=== PATIENT | female | born 1985 ===

== ENCOUNTER 2018-10-27 12:16 | Inpatient (IN) | payer OTHER ==
[2018-10-27] MEDS ORDERED: Sodium Chloride 0.9% 1,000 ML IV STA (13:41)
--- NOTE | 2018-10-27 13:50 | ED PDOC ---
HPI: Female Pain Time Seen by Provider: 10/27/18 13:41 Chief Complaint (Nursing): Female Genitourinary Chief Complaint (Provider): VAGINAL BLEEDING History Per: Patient History/Exam Limitations: no limitations Onset/Duration Of Symptoms: Days Current Symptoms Are (Timing): Still Present Severity: Moderate Pain Scale Rating Of: 7 Quality Of Discomfort: "Pain" Associated Symptoms: Fever, Chills, Nausea. denies: Vomiting Alleviating Factors: None Additional History Per: Patient Additional Complaint(s): 32 Y/O FEMALE WITH NO MEDICAL HX PRESENTS TO THE ED C/O RIGHT SIDED ABD PAIN, VAGINAL BLEEDING AND FEVER. PATIENT REPORTS LAST MENSTURAL PERIOD 08/10/2018. TWO WEEKS AGO PATIENT STATES SHE HAD VAGINAL BLEEDING FOR 1 DAY WITH "BLOOD CLOTS" AND 1 WEEKS AGO PT REPORTS SHE STARTED SPOTTING AGAIN. PATIENT TOOK URINE PREG TEST AT HOME WITH POSITIVE RESULT. PATIENT ALSO STATES FEVER LAST WEEK MONDAY AND BURNING ON URINATION. PATIENT DENIES CP AND SOB, DENIES HX OF STI. Abnormal Vaginal Bleeding: Yes Last Menstral Period: 08/10/2018 : 1 Para: 0 Past Medical History Vital Signs: Last Vital Signs Temp 98.4 F 10/27/18 12:55 Pulse 94 H 10/27/18 12:55 Resp 18 10/27/18 12:55 BP 117/67 10/27/18 12:55 Pulse Ox 99 10/27/18 12:55 TOSHA Report Viewed: No - Medical History PMH: No Chronic Diseases - Surgical History Surgical History: No Surg Hx - Family History Family History: States: Unknown Family Hx - Living Arrangements Living Arrangements: With Family - Social History Alcohol: None Drugs: Denies - Allergies Allergies/Adverse Reactions: Allergies Allergy/AdvReac Type Severity Reaction Status Date / Time ibuprofen AdvReac PAIN Verified 10/27/18 12:54 Review of Systems ROS Statement: Except As Marked, All Systems Reviewed And Found Negative Constitutional: Positive for: Fever, Chills. Negative for: Sweats, Weakness Respiratory: Negative for: Cough, Shortness of Breath, SOB with Exertion Gastrointestinal: Positive for: Nausea, Abdominal Pain Genitourinary Female: Positive for: Dysuria, Vaginal Bleeding, Pelvic Pain. Negative for: Vaginal Discharge Neurological: Negative for: Weakness Physical Exam - Reviewed Nursing Documentation Reviewed: Yes Vital Signs Reviewed: Yes - Physical Exam Appears: Positive for: Well, Non-toxic, No Acute Distress Head Exam: Positive for: ATRAUMATIC, NORMAL INSPECTION, NORMOCEPHALIC Skin: Positive for: Warm, Pallor, Jaundice. Negative for: Rash Eye Exam: Positive for: EOMI, Normal appearance, PERRL ENT: Positive for: Normal ENT Inspection Neck: Positive for: Normal, Painless ROM Cardiovascular/Chest: Positive for: Regular Rate, Rhythm Respiratory: Positive for: CNT, Normal Breath Sounds Pulses-Radial (L): 2+ Pulses-Radial (R): 2+ Gastrointestinal/Abdominal: Positive for: Normal Exam, Soft, Mass, Distended Pelvic Exam: Positive for: Mass (LARGE/ FIRM ABD BULGING WITH TENDERNESS TO RIGHT. BULGING EXTENDS PAST THE UMBILICUS 3 FINGER BREADTHS. SHIFTING TO RIGHT OF THE ABD. ABD DISTENTION NOTED 1 WEEK AGO. ) Back: Positive for: Normal Inspection. Negative for: L CVA Tenderness, R CVA Tenderness Extremity: Positive for: Normal ROM Neurological/Psych: Positive for: Awake, Alert, Normal Tone, Oriented - Laboratory Results Result Diagrams: 10/27/18 13:35 10/27/18 13:35 Urine POC: Positive - ECG O2 Sat by Pulse Oximetry: 99 Pulse Ox Interpretation: Normal Medical Decision Making Medical Decision Making: CBC CMP BETA HCG VBG UPREG UA US TRANS VAG 0.9NS 1 L BOLUS ROCEPHIN 1GM IV IN ED TYLENOL 650 MG PO: FEVER 14:30: DR. ARMIJO EXAMINED PT HAS BEDSIDE. LABS REVIEWED NOTED ELEVATED LFT'S, ELEVATED WBC'S, LOWER HGB/HCT PATIENT FOR UPPER ABD FOR EVAL OF LIVER. PENDING US PELVIS REPORT. ' WILDLIFE TECHNICIAN CALLED ON CONSULT, TEAM WILL EVALUATE PATIENT. PENDING US REPORT. 15:24 PELVIC US READ AND REVIEWED BY RADIOLOGIST FINDINGS: UTERUS: Measures 18.9 x 11.7 x 13.6 cm. Uterus is enlarged and appears heterogeneous in echotexture likely is a function of gross uterine fibroid disease. An aggregate versus solitary fibroid occupies the majority of tissue in the uterus measuring 15.6 x 9.3 x 11.6 cm with no separate definable pathology identified. ENDOMETRIUM: Not recognize throughout the exam. CERVIX: Limited evaluation due to gross uterine enlargement and myomatous changes. The visualized cervix appears nonfocal. RIGHT OVARY: Measures 3.6 x 1.5 x 2.7 cm. The right ovary is presumed to been identified however its hypoechoic appearance be indistinguishable from potential small exophytic fibroid. LEFT OVARY: Not identified. No suspicious adnexal mass or fluid collection appreciable. FREE FLUID: No significant free fluid noted. OTHER FINDINGS: None. IMPRESSION: Transabdominal ultrasonography of the pelvis reveals gross uterine enlargement likely from an aggregate or solitary grossly enlarged fibroid measuring 15.6 cm greatest dimension with the uterus measuring 18.9 cm as discussed above. The endometrium is unrecognizable and the cervix is poorly characterized with the visualized portion nonfocal. No suspicious adnexal findings are the left ovary is not identified. Right ovary appears unremarkable but given its hypoechoic pattern could be indistinguishable from an exophytic small fibroid. Elective MRI with and without contrast can be utilized for further characterization of the pelvic reproductive organs. US: PT HAS ENLARGED UTERUS AND AN ENLARGED FIBROID. WILDLIFE TECHNICIAN RECOMMEND FOR REPEAT BETA IN 2-3 DAYS. MEDICAL ADMISSION FOR ELEVATED LFT'S. PT PENDINF US ABD AND CHEST XRAY. 1800: SX RESIDENT CALLED, WAITING CALL BACK. REPEAT VS: TEMP: 98.8 HR:74 B/P:110/67 O2SAT:98%. 1835: DR. MOTTA (SURGERY) AWARE OF CONSULT, DR. Aleah NERI (GI) WILL SEE PATIENT IN ED. PATIENT AWARE OF CLINICAL FINDINGS AND IMPENDING CONSULTS. DR. GRAF CALLED FOR ADMISSION. 1950: DR. GRAF EXAMINED PT HAS BEDSIDE, PT FOR INPATIENT ADMISSION TO MED/SURG, ABD PAIN, UTI, JUANDICE. PT AWARE CLINICAL FINDINGS, AGREES WITH PLAN. Disposition - Clinical Impression Clinical Impression: Abdominal pain, UTI (urinary tract infection) - Patient ED Disposition Is Patient to be Admitted: Yes Counseled Patient/Family Regarding: Diagnosis, Need For Followup - Disposition Disposition Time: 19:54 Condition: STABLE Forms: Fliggo (Latvian) - Pt Status Changed To: Hospital Disposition Of: Inpatient - Admit Certification Admit to Inpatient:: After my assessment, the patient will require hospitalization for at least two midnights. This is because of the severity of symptoms shown, intensity of services needed, and/or the medical risk in this patient being treated as an outpatient. - POA Present On Arrival: None
[2018-10-27 13:53] LABS: BASO # 0.1 K/uL (0.0-0.2); BASO % 0.5 % (0.0-2.0); EOS # 0.1 K/uL (0.0-0.7); EOS % 0.4 % (0.0-4.0); LYMPH # 1.3 K/uL (1.0-4.3); LYMPH % 7.2 % (20.0-40.0); MEAN CELL VOLUME 75.9 fl (81.0-99.0); MEAN CORPUSCULAR HEMOGLOBIN 23.8 pg (27.0-31.0); MEAN CORPUSCULAR HGB CONC 31.4 g/dL (33.0-37.0); MONO # 1.1 K/uL (0.0-0.8); MONO % 6.1 % (0.0-10.0); NEUT # 15.4 K/uL (1.8-7.0); NEUT % 85.8 % (50.0-75.0); PLATELET COUNT 668 K/uL (130-400); RBC 3.77 Mil/uL (3.80-5.20); RED CELL DISTRIBUTION WIDTH 16.3 % (11.5-14.5)
[2018-10-27 13:56] LABS: SQUAMOUS EPITHIAL 2 /hpf (0-5); URINE AMORPHOUS SEDIMENT RARE /ul (<OCC); URINE BACTERIA FEW (<OCC); URINE BILIRUBIN NEGATIVE (NEGATIVE); URINE BLOOD LARGE (NEGATIVE); URINE CLARITY CLOUDY (Clear); URINE COLOR AMBER (YELLOW); URINE GLUCOSE (UA) NEG (NEGATIVE); URINE LEUKOCYTE ESTERASE MOD Leu/uL (Negative); URINE PROTEIN 100 mg/dL (NEGATIVE)
[2018-10-27 14:01] LABS: ALB/GLOB RATIO 0.9 (1.0-2.1); ALBUMIN 3.4 g/dL (3.5-5.0); ALT/SGPT 142 U/L (9-52); AST/SGOT 59 U/L (14-36); BLOOD UREA NITROGEN 7 mg/dl (7-17); CALCIUM 8.8 mg/dL (8.4-10.2); GFR NON-AFRICAN AMERICAN > 60
[2018-10-27] MEDS ORDERED: cefTRIAXone (Rocephin) 1 gm Inj ONE (15:01)
[2018-10-27 15:13] LABS: BLASTS 1 % (0-0); LYMPHOCYTE 9 % (20-50); MONOCYTE 4 % (0-10); MYELOCYTE 1 % (0-0); NEUTROPHIL 85 % (42-75); TOTAL CELLS COUNTED 100
[2018-10-27 15:14] LABS: VENOUS BLOOD GAS BASE EXCESS 0.1 mmol/L (0.0-2.0); VENOUS BLOOD GAS PCO2 39 mmHg (40-60); VENOUS BLOOD GAS PO2 37 mm/Hg (30-55); VENOUS BLOOD PH 7.41 (7.32-7.43)
[2018-10-27 15:14] LABS: ANISOCYTOSIS SLIGHT; MICROCYTOSIS SLIGHT; OVALOCYTES SLIGHT; PLATELET ESTIMATE INCREASED (NORMAL)
--- NOTE | 2018-10-27 15:27 | US ---
Date of service: 10/27/2018 HISTORY: PELVIC PAIN COMPARISON: None available. TECHNIQUE: Transabdominal pelvic ultrasound was performed with longitudinal and transverse images submitted for interpretation. FINDINGS: UTERUS: Measures 18.9 x 11.7 x 13.6 cm. Uterus is enlarged and appears heterogeneous in echotexture likely is a function of gross uterine fibroid disease. An aggregate versus solitary fibroid occupies the majority of tissue in the uterus measuring 15.6 x 9.3 x 11.6 cm with no separate definable pathology identified. ENDOMETRIUM: Not recognize throughout the exam. CERVIX: Limited evaluation due to gross uterine enlargement and myomatous changes. The visualized cervix appears nonfocal. RIGHT OVARY: Measures 3.6 x 1.5 x 2.7 cm. The right ovary is presumed to been identified however its hypoechoic appearance be indistinguishable from potential small exophytic fibroid. LEFT OVARY: Not identified. No suspicious adnexal mass or fluid collection appreciable. FREE FLUID: No significant free fluid noted. OTHER FINDINGS: None. IMPRESSION: Transabdominal ultrasonography of the pelvis reveals gross uterine enlargement likely from an aggregate or solitary grossly enlarged fibroid measuring 15.6 cm greatest dimension with the uterus measuring 18.9 cm as discussed above. The endometrium is unrecognizable and the cervix is poorly characterized with the visualized portion nonfocal. No suspicious adnexal findings are the left ovary is not identified. Right ovary appears unremarkable but given its hypoechoic pattern could be indistinguishable from an exophytic small fibroid. Elective MRI with and without contrast can be utilized for further characterization of the pelvic reproductive organs.
--- NOTE | 2018-10-27 15:37 | CP.PCM.CON ---
<Huber Henning - Last Filed: 10/27/18 16:55> History of Present Illness - History of Present Illness History of Present Illness: 32 yo female with no pmh present to ER due to RLQ pain and back, OB consulted due to + test with prev vaginal bleed. Last Menstrual period 08/10/18 Patient report that pain is on RLQ, radiate to back, 6 out of 10, comes and goes with no alleviating, or exacerbating factor. It started 1 week ago after she had a large vaginal bleed once, then spotting thru out the week,Patient report the pain have been daily, and on MON she had fever, dysuria and hematuria. On Monday patient checked for and found out that she is . Otherwise patient currently have no nausea, vomiting, chest pain, sob, constipation, dysuria or polyuria. O Review of Systems - Review of Systems Systems not reviewed;Unavailable: Acuity of Condition All systems: reviewed and no additional remarkable complaints except - Constitutional Constitutional: As Per HPI - EENT Eyes: As Per HPI Ears: As Per HPI - Reproductive: Female Reproductive:Female: Cycle <21 Days, Normal Menses Past Patient History - Past Social History Alcohol: None Drugs: Denies - PSYCHIATRIC Hx Substance Use: No - SURGICAL HISTORY Hx Surgeries: No - ANESTHESIA Hx Anesthesia: No Meds Allergies/Adverse Reactions: Allergies Allergy/AdvReac Type Severity Reaction Status Date / Time ibuprofen AdvReac PAIN Verified 10/27/18 12:54 - Medications Medications: Current Medications Ceftriaxone Sodium 1 gm/ (Sodium Chloride) 100 mls @ 100 mls/hr IVPB DAILY STA; Protocol Stop: 10/27/18 16:03 Last Admin: 10/27/18 15:13 Dose: 100 mls/hr Physical Exam - Constitutional Appears: Well, Non-toxic, No Acute Distress - Head Exam Head Exam: ATRAUMATIC, NORMAL INSPECTION, NORMOCEPHALIC - Eye Exam Eye Exam: EOMI, PERRL, Scleral icterus Pupil Exam: NORMAL ACCOMODATION, PERRL - ENT Exam ENT Exam: Mucous Membranes Moist, Normal Exam - Neck Exam Neck exam: Positive for: Normal Inspection - Respiratory Exam Respiratory Exam: Clear to Auscultation Bilateral, NORMAL BREATHING PATTERN - Cardiovascular Exam Cardiovascular Exam: REGULAR RHYTHM, +S1, +S2 - GI/Abdominal Exam GI & Abdominal Exam: Normal Bowel Sounds Additional comments: RLQ tender + for irregular/ hard uterus - Back Exam Back exam: NORMAL INSPECTION - Neurological Exam Neurological exam: Alert, CN II-XII Intact, Normal Gait, Oriented x3, Reflexes Normal - Skin Skin Exam: Dry, Intact, Warm Additional comments: jaundice Results - Vital Signs Recent Vital Signs: Last Vital Signs Temp 101.1 F H 10/27/18 15:09 Pulse 80 10/27/18 14:41 Resp 20 10/27/18 14:41 BP 104/63 10/27/18 14:41 Pulse Ox 99 10/27/18 14:54 - Labs Result Diagrams: 10/27/18 13:35 10/27/18 13:35 Labs: Laboratory Results - last 24 hr 10/27/18 10/27/18 10/27/18 13:35 13:35 13:35 WBC 18.0 H RBC 3.77 L Hgb 9.0 L Hct 28.6 L MCV 75.9 L MCH 23.8 L MCHC 31.4 L RDW 16.3 H Plt Count 668 H MPV 8.0 Neut % (Auto) 85.8 H Lymph % (Auto) 7.2 L Rooks % (Auto) 6.1 Eos % (Auto) 0.4 Baso % (Auto) 0.5 Neut # (Auto) 15.4 H Lymph # (Auto) 1.3 Rooks # (Auto) 1.1 H Eos # (Auto) 0.1 Baso # (Auto) 0.1 Neutrophils % (Manual) 85 H Lymphocytes % (Manual) 9 L Monocytes % (Manual) 4 Myelocytes % 1 H Blast Cells % 1 H Platelet Estimate Increased H Anisocytosis (manual) Slight Microcytosis (manual) Slight Ovalocytes Slight pO2 ABG Carboxyhemoglobin POC ABG HHb (Measured) ABG Methemoglobin VBG pH VBG pCO2 VBG HCO3 VBG O2 Sat (Calc) VBG Base Excess VBG Hgb O2 Saturation Hemoglobin Sodium 134 Potassium 3.6 Chloride 97 L Carbon Dioxide 26 Anion Gap 15 BUN 7 Creatinine 0.5 L Est GFR ( Amer) > 60 Est GFR (Non-Af Amer) > 60 Random Glucose 106 H Calcium 8.8 Total Bilirubin 1.0 AST 59 H ALT 142 H Alkaline Phosphatase 488 H Total Protein 7.2 Albumin 3.4 L Globulin 3.8 Albumin/Globulin Ratio 0.9 L Beta HCG, Quant 53.85 Urine Color Debbie Urine Clarity Cloudy Urine pH 6.0 Ur Specific Santo 1.017 Urine Protein 100 Urine Glucose (UA) Neg Urine Ketones 20 Urine Blood Large Urine Nitrate Negative Urine Bilirubin Negative Urine Urobilinogen 4.0 H Ur Leukocyte Esterase Mod Urine RBC (Auto) 87 H Urine Microscopic WBC 176 H Ur Squamous Epith Cells 2 Amorphous Sediment Rare H Urine Bacteria Few H Blood Type Antibody Screen BBK History Checked 10/27/18 10/27/18 13:40 15:11 WBC RBC Hgb Hct MCV MCH MCHC RDW Plt Count MPV Neut % (Auto) Lymph % (Auto) Rooks % (Auto) Eos % (Auto) Baso % (Auto) Neut # (Auto) Lymph # (Auto) Rooks # (Auto) Eos # (Auto) Baso # (Auto) Neutrophils % (Manual) Lymphocytes % (Manual) Monocytes % (Manual) Myelocytes % Blast Cells % Platelet Estimate Anisocytosis (manual) Microcytosis (manual) Ovalocytes pO2 37 ABG Carboxyhemoglobin 2.2 H POC ABG HHb (Measured) 24.0 H ABG Methemoglobin 3.0 VBG pH 7.41 VBG pCO2 39 L VBG HCO3 24.3 VBG O2 Sat (Calc) 74.7 H VBG Base Excess 0.1 VBG Hgb O2 Saturation 70.8 L Hemoglobin 13.3 Sodium Potassium Chloride Carbon Dioxide Anion Gap BUN Creatinine Est GFR ( Amer) Est GFR (Non-Af Amer) Random Glucose Calcium Total Bilirubin AST ALT Alkaline Phosphatase Total Protein Albumin Globulin Albumin/Globulin Ratio Beta HCG, Quant Urine Color Urine Clarity Urine pH Ur Specific Santo Urine Protein Urine Glucose (UA) Urine Ketones Urine Blood Urine Nitrate Urine Bilirubin Urine Urobilinogen Ur Leukocyte Esterase Urine RBC (Auto) Urine Microscopic WBC Ur Squamous Epith Cells Amorphous Sediment Urine Bacteria Blood Type A POSITIVE Antibody Screen Negative BBK History Checked No verified bt Assessment & Plan - Assessment and Plan (Free Text) Assessment: 32 yo female with no pmh present to ER due to RLQ pain and back, OB consulted due to + test with prev vaginal bleed. Last Menstrual period 08/10/18 US: + for uterine enlargement from an aggregate or solitary enlarged fibroid measuring 15.6cm greatest dimension with the uterus measuring 18.9 cm. the endometrium is unrecognizable and the cervix is poorly characterized with visualized portion nonfocal. No suspicious adnexal fidning are the left ovary is not identified. RIght ovary appears unremarkable but given its hypoechoic pattern could be indistinguishable form exophytic small fibroid. ELECTIVE MRI recommended Assessment and plan + for abd pain on RLQ Hx of vaginal bleed + for fibroid on US Beta HCG 50.85 PE: + for irregular uterus Plan Reviewing her labs,Physical examination, and US, cannot be confirmed, B-HCG is low, patient will need serial b-HCG to follow up for possible tumor secreting B-hcg vs IUGP. Would recommend for primary team to be consulted for further management and evaluate for other possible causative factors. Thank you for the consult <Christopher Chandra - Last Filed: 10/28/18 17:42> Meds - Medications Medications: Current Medications Acetaminophen (Tylenol 325mg Tab) 650 mg PO Q6 PRN PRN Reason: Fever >100.4 F Last Admin: 10/28/18 06:08 Dose: 650 mg Ferrous Sulfate (Feosol) 325 mg PO BID KULDIP Last Admin: 10/28/18 09:05 Dose: 325 mg Sodium Chloride (Sodium Chloride 0.9%) 1,000 mls @ 100 mls/hr IV .Q10H KULDIP Last Admin: 10/28/18 00:10 Dose: 100 mls/hr Piperacillin Sod/Tazobactam (Sod 3.375 gm/ Sodium Chloride) 100 mls @ 100 mls/hr IVPB Q6 KULDIP; Protocol Last Admin: 10/28/18 12:16 Dose: 100 mls/hr Multivit/Folic Acid/Iron () 1 tab PO DAILY KULDIP Last Admin: 10/28/18 09:05 Dose: 1 tab Results - Vital Signs Recent Vital Signs: Last Vital Signs Temp 99.8 F H 10/28/18 15:28 Pulse 88 10/28/18 15:28 Resp 17 10/28/18 15:28 BP 149/62 10/28/18 15:28 Pulse Ox 98 10/28/18 15:28 - Labs Result Diagrams: 10/28/18 06:35 10/28/18 06:35 Labs: Laboratory Results - last 24 hr 10/27/18 10/27/18 10/27/18 13:07 18:45 18:52 WBC RBC Hgb Hct MCV MCH MCHC RDW Plt Count MPV Neut % (Auto) Lymph % (Auto) Rooks % (Auto) Eos % (Auto) Baso % (Auto) Neut # (Auto) Lymph # (Auto) Rooks # (Auto) Eos # (Auto) Baso # (Auto) PT INR APTT Sodium Potassium Chloride Carbon Dioxide Anion Gap BUN Creatinine Est GFR ( Amer) Est GFR (Non-Af Amer) Random Glucose Calcium Total Bilirubin AST ALT Alkaline Phosphatase Total Protein Albumin Globulin Albumin/Globulin Ratio Serum HCG, Qual Beta HCG, Quant Urine Opiates Screen Negative Urine Methadone Screen Negative Ur Barbiturates Screen Negative Ur Phencyclidine Scrn Negative Ur Amphetamines Screen Negative U Benzodiazepines Scrn Negative U Oth Cocaine Metabols Negative U Cannabinoids Screen Negative Hepatitis A IgM Ab Negative Hep Bs Antigen Negative Hep B Core IgM Ab Negative Hepatitis C Antibody Negative Blood Type Confirm A POSITIVE 10/27/18 10/28/18 10/28/18 18:52 06:35 06:35 WBC 17.1 H RBC 3.25 L Hgb 8.0 L Hct 24.7 L MCV 76.0 L MCH 24.6 L MCHC 32.4 L RDW 16.6 H Plt Count 619 H MPV 7.7 Neut % (Auto) 86.6 H Lymph % (Auto) 6.7 L Rooks % (Auto) 5.6 Eos % (Auto) 0.7 Baso % (Auto) 0.4 Neut # (Auto) 14.9 H Lymph # (Auto) 1.1 Rooks # (Auto) 1.0 H Eos # (Auto) 0.1 Baso # (Auto) 0.1 PT 16.4 H 16.6 H INR 1.4 1.5 APTT 28.2 31.2 Sodium Potassium Chloride Carbon Dioxide Anion Gap BUN Creatinine Est GFR ( Amer) Est GFR (Non-Af Amer) Random Glucose Calcium Total Bilirubin AST ALT Alkaline Phosphatase Total Protein Albumin Globulin Albumin/Globulin Ratio Serum HCG, Qual Beta HCG, Quant Urine Opiates Screen Urine Methadone Screen Ur Barbiturates Screen Ur Phencyclidine Scrn Ur Amphetamines Screen U Benzodiazepines Scrn U Oth Cocaine Metabols U Cannabinoids Screen Hepatitis A IgM Ab Hep Bs Antigen Hep B Core IgM Ab Hepatitis C Antibody Blood Type Confirm 10/28/18 10/28/18 10/28/18 06:35 08:00 09:00 WBC RBC Hgb Hct MCV MCH MCHC RDW Plt Count MPV Neut % (Auto) Lymph % (Auto) Rooks % (Auto) Eos % (Auto) Baso % (Auto) Neut # (Auto) Lymph # (Auto) Rooks # (Auto) Eos # (Auto) Baso # (Auto) PT INR APTT Sodium 137 Potassium 3.6 Chloride 102 Carbon Dioxide 20 L Anion Gap 19 BUN 11 Creatinine 0.4 L Est GFR ( Amer) > 60 Est GFR (Non-Af Amer) > 60 Random Glucose 90 Calcium 8.3 L Total Bilirubin 1.0 AST 42 H D ALT 95 H D Alkaline Phosphatase 386 H D Total Protein 6.2 L Albumin 2.9 L Globulin 3.3 Albumin/Globulin Ratio 0.9 L Serum HCG, Qual Positive Beta HCG, Quant 48.79 Urine Opiates Screen Urine Methadone Screen Ur Barbiturates Screen Ur Phencyclidine Scrn Ur Amphetamines Screen U Benzodiazepines Scrn U Oth Cocaine Metabols U Cannabinoids Screen Hepatitis A IgM Ab Hep Bs Antigen Hep B Core IgM Ab Hepatitis C Antibody Blood Type Confirm Attending/Attestation - Attestation I have personally seen and examined this patient.: No I have fully participated in the care of the patient.: Yes I have reviewed all pertinent clinical information: Yes Notes (Text): 10/27/18 17:36 32yo with Large fibroid uterus evaluated at the ER for pain. Large fibroid uterus noted on Ultrasound evaluation. Low Beta hcg levels on lab evaluation. Assessment: Fibroid uterus Early with the possibility of miscarriage( recommend serial beta hcg levels every 72hours Referral of patient to a welder tool and die for mechanical commissioning engineer management of the fibroids. May reconsult Gynecology as needed.
[2018-10-27 15:48] LABS: VENOUS BLOOD GAS BASE EXCESS 2.2 mmol/L (0.0-2.0); VENOUS BLOOD GAS PCO2 33 mmHg (40-60); VENOUS BLOOD GAS PO2 65 mm/Hg (30-55); VENOUS BLOOD PH 7.49 (7.32-7.43)
--- NOTE | 2018-10-27 17:40 | US ---
Date of service: 10/27/2018 HISTORY: ELEVATED LFTS COMPARISON: None. TECHNIQUE: Sonographic evaluation of the right upper quadrant of the abdomen. FINDINGS: LIVER: Measures 15.0 cm in length. Normal echogenicity of the liver parenchyma. Normal directional blood flow seen at the main portal vein. No mass. No intrahepatic bile duct dilatation. GALLBLADDER: Gallbladder is distended without cholelithiasis appreciable. Gallbladder wall is borderline thickened at 2.5 mm. No pericholecystic fluid collection. Clinically correlate. No reported sonographic Ruiz sign. COMMON BILE DUCT: Measures 4.1 mm. No stones. No dilatation. PANCREAS: The pancreas unremarkable from head to the mid body with remainder obscured by overlying gastrointestinal gas. RIGHT KIDNEY: Measures 10.3 cm in length. Normal echogenicity. No calculus, mass, or hydronephrosis. Mildly prominent extrarenal pelvis noted. AORTA: No aneurysmal dilatation. IVC: Unremarkable. OTHER FINDINGS: Trace fluid is seen inferior to the left lobe liver as well as inferior to the gallbladder fossa. IMPRESSION: Trace fluid seen inferior to the left lobe liver as well as inferior to the gallbladder fossa. Gallbladder is mildly distended with upper limits normal gallbladder wall thickness. Clinically correlate for potential acalculous cholecystitis though this is not definite. No cholelithiasis appreciated. Normal CBD caliber. Partial imaging of the pancreas.
--- NOTE | 2018-10-27 18:39 | RAD ---
Date of service: 10/27/2018 HISTORY: FEBRILE COMPARISON: No prior. TECHNIQUE: Chest PA and lateral views FINDINGS: LUNGS: No active pulmonary disease. PLEURA: No significant pleural effusion identified. No pneumothorax apparent. CARDIOVASCULAR: No aortic atherosclerotic calcification present. Normal cardiac size. No pulmonary vascular congestion. OSSEOUS STRUCTURES: No significant abnormalities. VISUALIZED UPPER ABDOMEN: Normal. OTHER FINDINGS: None. IMPRESSION: No acute cardiopulmonary disease appreciated.
[2018-10-27 19:01] LABS: INR 1.4; PROTHROMBIN TIME 16.4 Seconds (9.8-13.1)
[2018-10-27 19:04] LABS: PARTIAL THROMBOPLASTIN TIME 28.2 Seconds (25.6-37.1)
--- NOTE | 2018-10-27 19:09 | CP.PCM.CON ---
History of Present Illness - History of Present Illness History of Present Illness: General Surgery Consult Note for Dr. Small Reason for consult: abd pain, rule out cholecystitis 32 F who denies any pmh presents to [facility] for complaint of abd pain. Patient seen and exaind in the ED. Patient stated pain started 1 week ago. At that same time, she developed vaginal bleeding. Patient reports the pain is moderate in [place]an [place]. She describes pain as sharp located in RLQ radiating to her back. Patient denies any aggravating or alleviating factors. She states on Monday that she had fever, dysuria and hematuria. Patient also states that she just found out that she is on Monday. OB was consulted due to and vaginal bleed. She reports her last Menstrual period was 08/10/18. Denies cp ,SOB, nausea, vomiting, diarrhea, constipation, incontinence. Patient reports 6 years ago that she had abnormal LFTS due to NSAID use. ABUS shows distention and thickened GB wall (see full report). PMH: Denies PSH: Denies ALL: ibuprofen Review of Systems - Review of Systems All systems: reviewed and no additional remarkable complaints except (as per HPI) Past Patient History - Past Social History Alcohol: None Drugs: Denies - PSYCHIATRIC Hx Substance Use: No - SURGICAL HISTORY Hx Surgeries: No - ANESTHESIA Hx Anesthesia: No Meds Allergies/Adverse Reactions: Allergies Allergy/AdvReac Type Severity Reaction Status Date / Time ibuprofen AdvReac PAIN Verified 10/27/18 12:54 Physical Exam - Constitutional Appears: No Acute Distress - Head Exam Head Exam: ATRAUMATIC, NORMOCEPHALIC - Eye Exam Eye Exam: EOMI, Normal appearance Pupil Exam: PERRL - ENT Exam ENT Exam: Mucous Membranes Moist - Respiratory Exam Respiratory Exam: NORMAL BREATHING PATTERN - Cardiovascular Exam Cardiovascular Exam: REGULAR RHYTHM - GI/Abdominal Exam GI & Abdominal Exam: Distended, Normal Bowel Sounds, Soft, Tenderness. absent: Firm, Guarding, Hernia, Rebound, Rigid - Extremities Exam Extremities exam: Positive for: normal capillary refill, pedal pulses present. Negative for: calf tenderness - Back Exam Back exam: absent: CVA tenderness (L), CVA tenderness (R) - Neurological Exam Neurological exam: Alert, Oriented x3 - Psychiatric Exam Psychiatric exam: Normal Affect, Normal Mood - Skin Skin Exam: Dry, Intact, Warm Results - Vital Signs Recent Vital Signs: Last Vital Signs Temp 98.8 F 10/27/18 17:31 Pulse 74 10/27/18 17:31 Resp 18 10/27/18 17:31 BP 110/67 10/27/18 17:31 Pulse Ox 99 10/27/18 18:47 - Labs Result Diagrams: 10/28/18 06:35 10/28/18 06:35 Labs: Laboratory Results - last 24 hr 10/27/18 10/27/18 10/27/18 13:35 13:35 13:35 WBC 18.0 H RBC 3.77 L Hgb 9.0 L Hct 28.6 L MCV 75.9 L MCH 23.8 L MCHC 31.4 L RDW 16.3 H Plt Count 668 H MPV 8.0 Neut % (Auto) 85.8 H Lymph % (Auto) 7.2 L [place] % (Auto) 6.1 Eos % (Auto) 0.4 Baso % (Auto) 0.5 Neut # (Auto) 15.4 H Lymph # (Auto) 1.3 [place] # (Auto) 1.1 H Eos # (Auto) 0.1 Baso # (Auto) 0.1 Neutrophils % (Manual) 85 H Lymphocytes % (Manual) 9 L Monocytes % (Manual) 4 Myelocytes % 1 H Blast Cells % 1 H Platelet Estimate Increased H Anisocytosis (manual) Slight Microcytosis (manual) Slight Ovalocytes Slight PT INR APTT pO2 ABG Carboxyhemoglobin POC ABG HHb (Measured) ABG Methemoglobin VBG pH VBG pCO2 VBG HCO3 VBG Total CO2 VBG O2 Sat (Calc) VBG Base Excess VBG Hgb O2 Saturation VBG Potassium Hemoglobin Glucose Lactate FiO2 Sodium 134 Potassium 3.6 Chloride 97 L Carbon Dioxide 26 Anion Gap 15 BUN 7 Creatinine 0.5 L Est GFR ( Amer) > 60 Est GFR (Non-Af Amer) > 60 Random Glucose 106 H Calcium 8.8 Total Bilirubin 1.0 AST 59 H ALT 142 H Alkaline Phosphatase 488 H Total Protein 7.2 Albumin 3.4 L Globulin 3.8 Albumin/Globulin Ratio 0.9 L Lipase Beta HCG, Quant 53.85 Venous Blood Potassium Urine Color Debbie Urine Clarity Cloudy Urine pH 6.0 Ur Specific [place] 1.017 Urine Protein 100 Urine Glucose (UA) Neg Urine Ketones 20 Urine Blood Large Urine Nitrate Negative Urine Bilirubin Negative Urine Urobilinogen 4.0 H Ur Leukocyte Esterase Mod Urine RBC (Auto) 87 H Urine Microscopic WBC 176 H Ur Squamous Epith Cells 2 Amorphous Sediment Rare H Urine Bacteria Few H Blood Type Antibody Screen BBK History Checked 10/27/18 10/27/18 10/27/18 13:40 15:11 15:44 WBC RBC Hgb Hct MCV MCH MCHC RDW Plt Count MPV Neut % (Auto) Lymph % (Auto) [place] % (Auto) Eos % (Auto) Baso % (Auto) Neut # (Auto) Lymph # (Auto) [place] # (Auto) Eos # (Auto) Baso # (Auto) Neutrophils % (Manual) Lymphocytes % (Manual) Monocytes % (Manual) Myelocytes % Blast Cells % Platelet Estimate Anisocytosis (manual) Microcytosis (manual) Ovalocytes PT INR APTT pO2 37 65 H ABG Carboxyhemoglobin 2.2 H POC ABG HHb (Measured) 24.0 H ABG Methemoglobin 3.0 VBG pH 7.41 7.49 H VBG pCO2 39 L 33 L VBG HCO3 24.3 26.6 VBG Total CO2 26.1 VBG O2 Sat (Calc) 74.7 H 97.7 H VBG Base Excess 0.1 2.2 H VBG Hgb O2 Saturation 70.8 L VBG Potassium 4.0 Hemoglobin 13.3 Glucose 99 Lactate 0.9 FiO2 21.0 Sodium 133.0 Potassium Chloride 103.0 Carbon Dioxide Anion Gap BUN Creatinine Est GFR ( Amer) Est GFR (Non-Af Amer) Random Glucose Calcium Total Bilirubin AST ALT Alkaline Phosphatase Total Protein Albumin Globulin Albumin/Globulin Ratio Lipase Beta HCG, Quant Venous Blood Potassium 4.0 Urine Color Urine Clarity Urine pH Ur Specific [place] Urine Protein Urine Glucose (UA) Urine Ketones Urine Blood Urine Nitrate Urine Bilirubin Urine Urobilinogen Ur Leukocyte Esterase Urine RBC (Auto) Urine Microscopic WBC Ur Squamous Epith Cells Amorphous Sediment Urine Bacteria Blood Type A POSITIVE Antibody Screen Negative BBK History Checked No verified bt 10/27/18 10/27/18 16:45 18:52 WBC RBC Hgb Hct MCV MCH MCHC RDW Plt Count MPV Neut % (Auto) Lymph % (Auto) [place] % (Auto) Eos % (Auto) Baso % (Auto) Neut # (Auto) Lymph # (Auto) [place] # (Auto) Eos # (Auto) Baso # (Auto) Neutrophils % (Manual) Lymphocytes % (Manual) Monocytes % (Manual) Myelocytes % Blast Cells % Platelet Estimate Anisocytosis (manual) Microcytosis (manual) Ovalocytes PT 16.4 H INR 1.4 APTT 28.2 pO2 ABG Carboxyhemoglobin POC ABG HHb (Measured) ABG Methemoglobin VBG pH VBG pCO2 VBG HCO3 VBG Total CO2 VBG O2 Sat (Calc) VBG Base Excess VBG Hgb O2 Saturation VBG Potassium Hemoglobin Glucose Lactate FiO2 Sodium Potassium Chloride Carbon Dioxide Anion Gap BUN Creatinine Est GFR ( Amer) Est GFR (Non-Af Amer) Random Glucose Calcium Total Bilirubin AST ALT Alkaline Phosphatase Total Protein Albumin Globulin Albumin/Globulin Ratio Lipase 194 Beta HCG, Quant Venous Blood Potassium Urine Color Urine Clarity Urine pH Ur Specific [place] Urine Protein Urine Glucose (UA) Urine Ketones Urine Blood Urine Nitrate Urine Bilirubin Urine Urobilinogen Ur Leukocyte Esterase Urine RBC (Auto) Urine Microscopic WBC Ur Squamous Epith Cells Amorphous Sediment Urine Bacteria Blood Type Antibody Screen BBK History Checked Assessment & Plan - Assessment and Plan (Free Text) Assessment: 32 F who presents with abd pain, + , vaginal bleeding and abnormal LFTs Plan: -Diet as tolerated -Pain control -f/u [employer] recommendations -Trend LFTs -f/u GI recommendations -Further recommendations as per Dr. Geovanny Kya PGY2 - Date & Time Date: 10/27/18 Time: 19:00
[2018-10-27 19:30] LABS: BARBITURATES, UR NEGATIVE (NEGATIVE); BENZODIAZEPINES, UR NEGATIVE (NEGATIVE); OPIATES, UR NEGATIVE (NEGATIVE); PHENCYCLIDINE, UR NEGATIVE (NEGATIVE)
--- NOTE | 2018-10-27 19:57 | CP.PCM.HP ---
<VeenaPeggy - Last Filed: 10/27/18 20:51> History of Present Illness - History of Present Illness History of Present Illness: 32 yo female with no pmh presented to the ER due to abdominal pain. Patient has been experiencing constant, 6/10 RLQ pain that began 1 week ago associated with vaginal spotting. Denies aggrevating or alleviating factors. She reports her LMP was 08/10/18. Of note, patient reports she has a history of "elevated liver enzymes" that was diagnosed 6 years ago after taking Ibuprofen everyday for 1 month duration. At that time she was told to stop taking the medication. Patient reports they repeated her LFT's and it was normal last year at an [facility] clinic. Denies nausea, vomiting, fevers, chills, diarrhea, dysuria, frequency and urgency. ROS: negative except for stated above in HPI PMD: None Family history: non-contributory Social history: Denies smoking history, illicit drug use and alcohol use. Medical history: none Home medications: None. Surgeries: None Allergies: N.K.D.A ED course: VS: BP: 117/67; T: 101.1F; HR: 94; RR: 18; O2 saturation: 100% room air Interventions in the ED: - 1L NS bolus - Ceftriaxone 1 gm x1; - Tylenol 650mg po for fever - CBC: 18> 9/ 28.6 < 668 - CMP: 134/3.6 ; 97/26 ; 7/0.5 < 106; AST/ALT: 59/ 142 ; Alk phos: 488 ; Lipase: 194 - PT/PTT: 16.4 / 28.2 ; INR:1.4 - BETA HC.85 - CXRAY: no acute cardiopulmonary disease - Abdominal U/S: Fluid noted inferior to left lobe of the liver and inferior to the gallbladder fossa. Gallbladder mildly distended with upper limit of normal gallbladder wall thickness. Normal CBD caliber. No cholelithiasis appreciated. - Pelvic ultrasound: gross uterine enlargement from enlarged fibroid measuring 15.6cm with uterus measuring 18.9cm. Present on Admission - Present on Admission Any Indicators Present on Admission: No History of DVT/PE: No History of Uncontrolled Diabetes: No Urinary Catheter: No Past Patient History - Past Social History Alcohol: None Drugs: Denies - PSYCHIATRIC Hx Substance Use: No - SURGICAL HISTORY Hx Surgeries: No - ANESTHESIA Hx Anesthesia: No Meds Allergies/Adverse Reactions: Allergies Allergy/AdvReac Type Severity Reaction Status Date / Time ibuprofen AdvReac PAIN Verified 10/27/18 12:54 Physical Exam - Constitutional Appears: Well, Non-toxic, No Acute Distress - Eye Exam Eye Exam: Scleral icterus. absent: Conjunctival injection Pupil Exam: NORMAL ACCOMODATION, PERRL - ENT Exam ENT Exam: Mucous Membranes Moist, Normal Exam - Neck Exam Neck exam: Positive for: Normal Inspection - Respiratory Exam Respiratory Exam: Clear to Auscultation Bilateral, NORMAL BREATHING PATTERN. absent: Accessory Muscle Use, Chest Wall Tenderness, Decreased Breath Sounds, Prolonged Expiratory Phase, Rales, Rhonchi, Wheezes, Respiratory Distress, Stridor - Cardiovascular Exam Cardiovascular Exam: REGULAR RHYTHM, RRR, +S1, +S2. absent: Bradycardia, Tachycardia, Clicks, Diastolic murmur, JVD, Systolic Murmur - GI/Abdominal Exam GI & Abdominal Exam: Distended, Firm, Normal Bowel Sounds (Bowel sounds present in all four quadrants. ), Tenderness (mild tenderness present on RLQ; Negative Rovsing's; no rebound tenderness. Negative Psoas sign. ). absent: Guarding, Rebound Additional comments: Firm abdomen with distention. Bulge noted greater on the right. - Extremities Exam Extremities exam: Positive for: full ROM, normal inspection, pedal pulses present (+2 dorsalis pedis pulses present.). Negative for: calf tenderness, pedal edema, tenderness - Back Exam Back exam: NORMAL INSPECTION. absent: CVA tenderness (L), CVA tenderness (R) - Neurological Exam Neurological exam: Alert, Oriented x3 - Psychiatric Exam Psychiatric exam: Normal Affect, Normal Mood - Skin Skin Exam: Dry, Intact, Normal Color, Warm Results - Vital Signs Recent Vital Signs: Last Vital Signs Temp 98.8 F 10/27/18 17:31 Pulse 74 10/27/18 17:31 Resp 18 10/27/18 17:31 BP 110/67 10/27/18 17:31 Pulse Ox 99 10/27/18 18:47 - Labs Result Diagrams: 10/27/18 13:35 10/27/18 13:35 Labs: Laboratory Results - last 24 hr 10/27/18 10/27/18 10/27/18 13:35 13:35 13:35 WBC 18.0 H RBC 3.77 L Hgb 9.0 L Hct 28.6 L MCV 75.9 L MCH 23.8 L MCHC 31.4 L RDW 16.3 H Plt Count 668 H MPV 8.0 Neut % (Auto) 85.8 H Lymph % (Auto) 7.2 L [place] % (Auto) 6.1 Eos % (Auto) 0.4 Baso % (Auto) 0.5 Neut # (Auto) 15.4 H Lymph # (Auto) 1.3 [place] # (Auto) 1.1 H Eos # (Auto) 0.1 Baso # (Auto) 0.1 Neutrophils % (Manual) 85 H Lymphocytes % (Manual) 9 L Monocytes % (Manual) 4 Myelocytes % 1 H Blast Cells % 1 H Platelet Estimate Increased H Anisocytosis (manual) Slight Microcytosis (manual) Slight Ovalocytes Slight PT INR APTT pO2 ABG Carboxyhemoglobin POC ABG HHb (Measured) ABG Methemoglobin VBG pH VBG pCO2 VBG HCO3 VBG Total CO2 VBG O2 Sat (Calc) VBG Base Excess VBG Hgb O2 Saturation VBG Potassium Hemoglobin Glucose Lactate FiO2 Sodium 134 Potassium 3.6 Chloride 97 L Carbon Dioxide 26 Anion Gap 15 BUN 7 Creatinine 0.5 L Est GFR ( Amer) > 60 Est GFR (Non-Af Amer) > 60 Random Glucose 106 H Calcium 8.8 Total Bilirubin 1.0 AST 59 H ALT 142 H Alkaline Phosphatase 488 H Total Protein 7.2 Albumin 3.4 L Globulin 3.8 Albumin/Globulin Ratio 0.9 L Lipase Beta HCG, Quant 53.85 Venous Blood Potassium Urine Color Debbie Urine Clarity Cloudy Urine pH 6.0 Ur Specific [place] 1.017 Urine Protein 100 Urine Glucose (UA) Neg Urine Ketones 20 Urine Blood Large Urine Nitrate Negative Urine Bilirubin Negative Urine Urobilinogen 4.0 H Ur Leukocyte Esterase Mod Urine RBC (Auto) 87 H Urine Microscopic WBC 176 H Ur Squamous Epith Cells 2 Amorphous Sediment Rare H Urine Bacteria Few H Urine Opiates Screen Urine Methadone Screen Ur Barbiturates Screen Ur Phencyclidine Scrn Ur Amphetamines Screen U Benzodiazepines Scrn U Oth Cocaine Metabols U Cannabinoids Screen Blood Type Antibody Screen BBK History Checked 10/27/18 10/27/18 10/27/18 13:40 15:11 15:44 WBC RBC Hgb Hct MCV MCH MCHC RDW Plt Count MPV Neut % (Auto) Lymph % (Auto) [place] % (Auto) Eos % (Auto) Baso % (Auto) Neut # (Auto) Lymph # (Auto) [place] # (Auto) Eos # (Auto) Baso # (Auto) Neutrophils % (Manual) Lymphocytes % (Manual) Monocytes % (Manual) Myelocytes % Blast Cells % Platelet Estimate Anisocytosis (manual) Microcytosis (manual) Ovalocytes PT INR APTT pO2 37 65 H ABG Carboxyhemoglobin 2.2 H POC ABG HHb (Measured) 24.0 H ABG Methemoglobin 3.0 VBG pH 7.41 7.49 H VBG pCO2 39 L 33 L VBG HCO3 24.3 26.6 VBG Total CO2 26.1 VBG O2 Sat (Calc) 74.7 H 97.7 H VBG Base Excess 0.1 2.2 H VBG Hgb O2 Saturation 70.8 L VBG Potassium 4.0 Hemoglobin 13.3 Glucose 99 Lactate 0.9 FiO2 21.0 Sodium 133.0 Potassium Chloride 103.0 Carbon Dioxide Anion Gap BUN Creatinine Est GFR ( Amer) Est GFR (Non-Af Amer) Random Glucose Calcium Total Bilirubin AST ALT Alkaline Phosphatase Total Protein Albumin Globulin Albumin/Globulin Ratio Lipase Beta HCG, Quant Venous Blood Potassium 4.0 Urine Color Urine Clarity Urine pH Ur Specific [place] Urine Protein Urine Glucose (UA) Urine Ketones Urine Blood Urine Nitrate Urine Bilirubin Urine Urobilinogen Ur Leukocyte Esterase Urine RBC (Auto) Urine Microscopic WBC Ur Squamous Epith Cells Amorphous Sediment Urine Bacteria Urine Opiates Screen Urine Methadone Screen Ur Barbiturates Screen Ur Phencyclidine Scrn Ur Amphetamines Screen U Benzodiazepines Scrn U Oth Cocaine Metabols U Cannabinoids Screen Blood Type A POSITIVE Antibody Screen Negative BBK History Checked No verified bt 10/27/18 10/27/18 10/27/18 16:45 18:52 18:52 WBC RBC Hgb Hct MCV MCH MCHC RDW Plt Count MPV Neut % (Auto) Lymph % (Auto) [place] % (Auto) Eos % (Auto) Baso % (Auto) Neut # (Auto) Lymph # (Auto) [place] # (Auto) Eos # (Auto) Baso # (Auto) Neutrophils % (Manual) Lymphocytes % (Manual) Monocytes % (Manual) Myelocytes % Blast Cells % Platelet Estimate Anisocytosis (manual) Microcytosis (manual) Ovalocytes PT 16.4 H INR 1.4 APTT 28.2 pO2 ABG Carboxyhemoglobin POC ABG HHb (Measured) ABG Methemoglobin VBG pH VBG pCO2 VBG HCO3 VBG Total CO2 VBG O2 Sat (Calc) VBG Base Excess VBG Hgb O2 Saturation VBG Potassium Hemoglobin Glucose Lactate FiO2 Sodium Potassium Chloride Carbon Dioxide Anion Gap BUN Creatinine Est GFR ( Amer) Est GFR (Non-Af Amer) Random Glucose Calcium Total Bilirubin AST ALT Alkaline Phosphatase Total Protein Albumin Globulin Albumin/Globulin Ratio Lipase 194 Beta HCG, Quant Venous Blood Potassium Urine Color Urine Clarity Urine pH Ur Specific [place] Urine Protein Urine Glucose (UA) Urine Ketones Urine Blood Urine Nitrate Urine Bilirubin Urine Urobilinogen Ur Leukocyte Esterase Urine RBC (Auto) Urine Microscopic WBC Ur Squamous Epith Cells Amorphous Sediment Urine Bacteria Urine Opiates Screen Negative Urine Methadone Screen Negative Ur Barbiturates Screen Negative Ur Phencyclidine Scrn Negative Ur Amphetamines Screen Negative U Benzodiazepines Scrn Negative U Oth Cocaine Metabols Negative U Cannabinoids Screen Negative Blood Type Antibody Screen BBK History Checked Assessment & Plan (1) Cholecystitis Status: Acute (2) Status: Acute (3) Anemia affecting in first trimester Status: Acute (4) DVT prophylaxis Status: Acute (5) Full code status Status: Acute - Assessment and Plan (Free Text) Assessment: 32 yo female with no pmh presented to the ER due to abdominal pain admitted for cholecystitis. Abdominal U/S: Fluid noted inferior to left lobe of the liver and inferior to the gallbladder fossa. Gallbladder mildly distended with upper limit of normal gallbladder wall thickness. Normal CBD caliber. No cholelithiasis appreciated. Plan: 1. Cholecystitis - Admitted to MED/SURG - leukocytosis (18) and febrile (Tmax of 101.1) - IVF - NS 0.9% @100mL/hr - Zosyn 3.375gm IVP Q6H - F/U PTT; PT; CMP; CBC; blood culture - GI consult - Surgery consult 2. 1st trimester - LMP: 08/10/18 - Beta HC.85 - Pelvic ultrasound: gross uterine enlargement from enlarged fibroid measuring 15.6cm with uterus measuring 18.9cm. - PHYSICAL THER consult appreciated- cannot be confirmed, B-HCG is low, patient will need serial b-HCG to follow up for possible tumor secreting B-hcg vs IUGP. - F/u Beta HCG 3. Anemia affecting in 1st trimester - Asymptomatic at this time - Ferrous sulfate 325mg po BID - repeat CBC in am 4. DVT prophylaxis - SCD's and early ambulation 5. Full code statue <Ke Maria D - Last Filed: 10/28/18 10:42> Results - Vital Signs Recent Vital Signs: Last Vital Signs Temp 98.0 F 10/28/18 09:12 Pulse 75 10/28/18 09:12 Resp 18 10/28/18 09:12 BP 100/62 10/28/18 09:12 Pulse Ox 98 10/28/18 09:12 - Labs Result Diagrams: 10/28/18 06:35 10/28/18 06:35 Labs: Laboratory Results - last 24 hr 10/27/18 10/27/18 10/27/18 13:07 13:35 13:35 WBC 18.0 H RBC 3.77 L Hgb 9.0 L Hct 28.6 L MCV 75.9 L MCH 23.8 L MCHC 31.4 L RDW 16.3 H Plt Count 668 H MPV 8.0 Neut % (Auto) 85.8 H Lymph % (Auto) 7.2 L [place] % (Auto) 6.1 Eos % (Auto) 0.4 Baso % (Auto) 0.5 Neut # (Auto) 15.4 H Lymph # (Auto) 1.3 [place] # (Auto) 1.1 H Eos # (Auto) 0.1 Baso # (Auto) 0.1 Neutrophils % (Manual) 85 H Lymphocytes % (Manual) 9 L Monocytes % (Manual) 4 Myelocytes % 1 H Blast Cells % 1 H Platelet Estimate Increased H Anisocytosis (manual) Slight Microcytosis (manual) Slight Ovalocytes Slight PT INR APTT pO2 ABG Carboxyhemoglobin POC ABG HHb (Measured) ABG Methemoglobin VBG pH VBG pCO2 VBG HCO3 VBG Total CO2 VBG O2 Sat (Calc) VBG Base Excess VBG Hgb O2 Saturation VBG Potassium Hemoglobin Glucose Lactate FiO2 Sodium 134 Potassium 3.6 Chloride 97 L Carbon Dioxide 26 Anion Gap 15 BUN 7 Creatinine 0.5 L Est GFR ( Amer) > 60 Est GFR (Non-Af Amer) > 60 Random Glucose 106 H Calcium 8.8 Total Bilirubin 1.0 AST 59 H ALT 142 H Alkaline Phosphatase 488 H Total Protein 7.2 Albumin 3.4 L Globulin 3.8 Albumin/Globulin Ratio 0.9 L Lipase Serum HCG, Qual Beta HCG, Quant 53.85 Venous Blood Potassium Urine Color Urine Clarity Urine pH Ur Specific [place] Urine Protein Urine Glucose (UA) Urine Ketones Urine Blood Urine Nitrate Urine Bilirubin Urine Urobilinogen Ur Leukocyte Esterase Urine RBC (Auto) Urine Microscopic WBC Ur Squamous Epith Cells Amorphous Sediment Urine Bacteria Urine Opiates Screen Urine Methadone Screen Ur Barbiturates Screen Ur Phencyclidine Scrn Ur Amphetamines Screen U Benzodiazepines Scrn U Oth Cocaine Metabols U Cannabinoids Screen Hepatitis A IgM Ab Hep Bs Antigen Hep B Core IgM Ab Hepatitis C Antibody Blood Type Blood Type Confirm A POSITIVE Antibody Screen BBK History Checked 10/27/18 10/27/18 10/27/18 13:35 13:40 15:11 WBC RBC Hgb Hct MCV MCH MCHC RDW Plt Count MPV Neut % (Auto) Lymph % (Auto) [place] % (Auto) Eos % (Auto) Baso % (Auto) Neut # (Auto) Lymph # (Auto) [place] # (Auto) Eos # (Auto) Baso # (Auto) Neutrophils % (Manual) Lymphocytes % (Manual) Monocytes % (Manual) Myelocytes % Blast Cells % Platelet Estimate Anisocytosis (manual) Microcytosis (manual) Ovalocytes PT INR APTT pO2 37 ABG Carboxyhemoglobin 2.2 H POC ABG HHb (Measured) 24.0 H ABG Methemoglobin 3.0 VBG pH 7.41 VBG pCO2 39 L VBG HCO3 24.3 VBG Total CO2 VBG O2 Sat (Calc) 74.7 H VBG Base Excess 0.1 VBG Hgb O2 Saturation 70.8 L VBG Potassium Hemoglobin 13.3 Glucose Lactate FiO2 Sodium Potassium Chloride Carbon Dioxide Anion Gap BUN Creatinine Est GFR ( Amer) Est GFR (Non-Af Amer) Random Glucose Calcium Total Bilirubin AST ALT Alkaline Phosphatase Total Protein Albumin Globulin Albumin/Globulin Ratio Lipase Serum HCG, Qual Beta HCG, Quant Venous Blood Potassium Urine Color Debbie Urine Clarity Cloudy Urine pH 6.0 Ur Specific [place] 1.017 Urine Protein 100 Urine Glucose (UA) Neg Urine Ketones 20 Urine Blood Large Urine Nitrate Negative Urine Bilirubin Negative Urine Urobilinogen 4.0 H Ur Leukocyte Esterase Mod Urine RBC (Auto) 87 H Urine Microscopic WBC 176 H Ur Squamous Epith Cells 2 Amorphous Sediment Rare H Urine Bacteria Few H Urine Opiates Screen Urine Methadone Screen Ur Barbiturates Screen Ur Phencyclidine Scrn Ur Amphetamines Screen U Benzodiazepines Scrn U Oth Cocaine Metabols U Cannabinoids Screen Hepatitis A IgM Ab Hep Bs Antigen Hep B Core IgM Ab Hepatitis C Antibody Blood Type A POSITIVE Blood Type Confirm Antibody Screen Negative BBK History Checked No verified bt 10/27/18 10/27/18 10/27/18 15:44 16:45 18:45 WBC RBC Hgb Hct MCV MCH MCHC RDW Plt Count MPV Neut % (Auto) Lymph % (Auto) [place] % (Auto) Eos % (Auto) Baso % (Auto) Neut # (Auto) Lymph # (Auto) [place] # (Auto) Eos # (Auto) Baso # (Auto) Neutrophils % (Manual) Lymphocytes % (Manual) Monocytes % (Manual) Myelocytes % Blast Cells % Platelet Estimate Anisocytosis (manual) Microcytosis (manual) Ovalocytes PT INR APTT pO2 65 H ABG Carboxyhemoglobin POC ABG HHb (Measured) ABG Methemoglobin VBG pH 7.49 H VBG pCO2 33 L VBG HCO3 26.6 VBG Total CO2 26.1 VBG O2 Sat (Calc) 97.7 H VBG Base Excess 2.2 H VBG Hgb O2 Saturation VBG Potassium 4.0 Hemoglobin Glucose 99 Lactate 0.9 FiO2 21.0 Sodium 133.0 Potassium Chloride 103.0 Carbon Dioxide Anion Gap BUN Creatinine Est GFR ( Amer) Est GFR (Non-Af Amer) Random Glucose Calcium Total Bilirubin AST ALT Alkaline Phosphatase Total Protein Albumin Globulin Albumin/Globulin Ratio Lipase 194 Serum HCG, Qual Beta HCG, Quant Venous Blood Potassium 4.0 Urine Color Urine Clarity Urine pH Ur Specific [place] Urine Protein Urine Glucose (UA) Urine Ketones Urine Blood Urine Nitrate Urine Bilirubin Urine Urobilinogen Ur Leukocyte Esterase Urine RBC (Auto) Urine Microscopic WBC Ur Squamous Epith Cells Amorphous Sediment Urine Bacteria Urine Opiates Screen Urine Methadone Screen Ur Barbiturates Screen Ur Phencyclidine Scrn Ur Amphetamines Screen U Benzodiazepines Scrn U Oth Cocaine Metabols U Cannabinoids Screen Hepatitis A IgM Ab Negative Hep Bs Antigen Negative Hep B Core IgM Ab Negative Hepatitis C Antibody Negative Blood Type Blood Type Confirm Antibody Screen BBK History Checked 10/27/18 10/27/18 10/28/18 18:52 18:52 06:35 WBC 17.1 H RBC 3.25 L Hgb 8.0 L Hct 24.7 L MCV 76.0 L MCH 24.6 L MCHC 32.4 L RDW 16.6 H Plt Count 619 H MPV 7.7 Neut % (Auto) 86.6 H Lymph % (Auto) 6.7 L [place] % (Auto) 5.6 Eos % (Auto) 0.7 Baso % (Auto) 0.4 Neut # (Auto) 14.9 H Lymph # (Auto) 1.1 [place] # (Auto) 1.0 H Eos # (Auto) 0.1 Baso # (Auto) 0.1 Neutrophils % (Manual) Lymphocytes % (Manual) Monocytes % (Manual) Myelocytes % Blast Cells % Platelet Estimate Anisocytosis (manual) Microcytosis (manual) Ovalocytes PT 16.4 H INR 1.4 APTT 28.2 pO2 ABG Carboxyhemoglobin POC ABG HHb (Measured) ABG Methemoglobin VBG pH VBG pCO2 VBG HCO3 VBG Total CO2 VBG O2 Sat (Calc) VBG Base Excess VBG Hgb O2 Saturation VBG Potassium Hemoglobin Glucose Lactate FiO2 Sodium Potassium Chloride Carbon Dioxide Anion Gap BUN Creatinine Est GFR ( Amer) Est GFR (Non-Af Amer) Random Glucose Calcium Total Bilirubin AST ALT Alkaline Phosphatase Total Protein Albumin Globulin Albumin/Globulin Ratio Lipase Serum HCG, Qual Beta HCG, Quant Venous Blood Potassium Urine Color Urine Clarity Urine pH Ur Specific [place] Urine Protein Urine Glucose (UA) Urine Ketones Urine Blood Urine Nitrate Urine Bilirubin Urine Urobilinogen Ur Leukocyte Esterase Urine RBC (Auto) Urine Microscopic WBC Ur Squamous Epith Cells Amorphous Sediment Urine Bacteria Urine Opiates Screen Negative Urine Methadone Screen Negative Ur Barbiturates Screen Negative Ur Phencyclidine Scrn Negative Ur Amphetamines Screen Negative U Benzodiazepines Scrn Negative U Oth Cocaine Metabols Negative U Cannabinoids Screen Negative Hepatitis A IgM Ab Hep Bs Antigen Hep B Core IgM Ab Hepatitis C Antibody Blood Type Blood Type Confirm Antibody Screen BBK History Checked 10/28/18 10/28/18 10/28/18 06:35 06:35 08:00 WBC RBC Hgb Hct MCV MCH MCHC RDW Plt Count MPV Neut % (Auto) Lymph % (Auto) [place] % (Auto) Eos % (Auto) Baso % (Auto) Neut # (Auto) Lymph # (Auto) [place] # (Auto) Eos # (Auto) Baso # (Auto) Neutrophils % (Manual) Lymphocytes % (Manual) Monocytes % (Manual) Myelocytes % Blast Cells % Platelet Estimate Anisocytosis (manual) Microcytosis (manual) Ovalocytes PT 16.6 H INR 1.5 APTT 31.2 pO2 ABG Carboxyhemoglobin POC ABG HHb (Measured) ABG Methemoglobin VBG pH VBG pCO2 VBG HCO3 VBG Total CO2 VBG O2 Sat (Calc) VBG Base Excess VBG Hgb O2 Saturation VBG Potassium Hemoglobin Glucose Lactate FiO2 Sodium 137 Potassium 3.6 Chloride 102 Carbon Dioxide 20 L Anion Gap 19 BUN 11 Creatinine 0.4 L Est GFR ( Amer) > 60 Est GFR (Non-Af Amer) > 60 Random Glucose 90 Calcium 8.3 L Total Bilirubin 1.0 AST 42 H D ALT 95 H D Alkaline Phosphatase 386 H D Total Protein 6.2 L Albumin 2.9 L Globulin 3.3 Albumin/Globulin Ratio 0.9 L Lipase Serum HCG, Qual Positive Beta HCG, Quant Venous Blood Potassium Urine Color Urine Clarity Urine pH Ur Specific [place] Urine Protein Urine Glucose (UA) Urine Ketones Urine Blood Urine Nitrate Urine Bilirubin Urine Urobilinogen Ur Leukocyte Esterase Urine RBC (Auto) Urine Microscopic WBC Ur Squamous Epith Cells Amorphous Sediment Urine Bacteria Urine Opiates Screen Urine Methadone Screen Ur Barbiturates Screen Ur Phencyclidine Scrn Ur Amphetamines Screen U Benzodiazepines Scrn U Oth Cocaine Metabols U Cannabinoids Screen Hepatitis A IgM Ab Hep Bs Antigen Hep B Core IgM Ab Hepatitis C Antibody Blood Type Blood Type Confirm Antibody Screen BBK History Checked 10/28/18 09:00 WBC RBC Hgb Hct MCV MCH MCHC RDW Plt Count MPV Neut % (Auto) Lymph % (Auto) [place] % (Auto) Eos % (Auto) Baso % (Auto) Neut # (Auto) Lymph # (Auto) [place] # (Auto) Eos # (Auto) Baso # (Auto) Neutrophils % (Manual) Lymphocytes % (Manual) Monocytes % (Manual) Myelocytes % Blast Cells % Platelet Estimate Anisocytosis (manual) Microcytosis (manual) Ovalocytes PT INR APTT pO2 ABG Carboxyhemoglobin POC ABG HHb (Measured) ABG Methemoglobin VBG pH VBG pCO2 VBG HCO3 VBG Total CO2 VBG O2 Sat (Calc) VBG Base Excess VBG Hgb O2 Saturation VBG Potassium Hemoglobin Glucose Lactate FiO2 Sodium Potassium Chloride Carbon Dioxide Anion Gap BUN Creatinine Est GFR ( Amer) Est GFR (Non-Af Amer) Random Glucose Calcium Total Bilirubin AST ALT Alkaline Phosphatase Total Protein Albumin Globulin Albumin/Globulin Ratio Lipase Serum HCG, Qual Beta HCG, Quant 48.79 Venous Blood Potassium Urine Color Urine Clarity Urine pH Ur Specific [place] Urine Protein Urine Glucose (UA) Urine Ketones Urine Blood Urine Nitrate Urine Bilirubin Urine Urobilinogen Ur Leukocyte Esterase Urine RBC (Auto) Urine Microscopic WBC Ur Squamous Epith Cells Amorphous Sediment Urine Bacteria Urine Opiates Screen Urine Methadone Screen Ur Barbiturates Screen Ur Phencyclidine Scrn Ur Amphetamines Screen U Benzodiazepines Scrn U Oth Cocaine Metabols U Cannabinoids Screen Hepatitis A IgM Ab Hep Bs Antigen Hep B Core IgM Ab Hepatitis C Antibody Blood Type Blood Type Confirm Antibody Screen BBK History Checked Attending/Attestation - Attestation I have personally seen and examined this patient.: Yes I have fully participated in the care of the patient.: Yes I have reviewed all pertinent clinical information: Yes Notes (Text): 10/28/18 10:42 Patient seen and examined with resident. Case discussed and agreed with assessment and plan of management.
[2018-10-28] MEDS: Sodium Chloride 0.9% 1,000 ML IV SCH (00:10)
[2018-10-28] MEDS: Piperacillin/Tazobact 3.375 GM in Sodium Chloride 0.9% 100 ML IVPB SCH ×4 (00:11→17:44)
[2018-10-28] MEDS ORDERED: Piperacillin/Tazobact 3.375 gm Inj IVPB ONE ×5 (05:11→21:26)
[2018-10-28 07:22] LABS: BASO # 0.1 K/uL (0.0-0.2); BASO % 0.4 % (0.0-2.0); EOS # 0.1 K/uL (0.0-0.7); EOS % 0.7 % (0.0-4.0); LYMPH # 1.1 K/uL (1.0-4.3); LYMPH % 6.7 % (20.0-40.0); MEAN CORPUSCULAR HEMOGLOBIN 24.6 pg (27.0-31.0); MEAN CORPUSCULAR HGB CONC 32.4 g/dL (33.0-37.0); MEAN PLATELET VOLUME 7.7 fl (7.2-11.7); MONO % 5.6 % (0.0-10.0); NEUT # 14.9 K/uL (1.8-7.0); NEUT % 86.6 % (50.0-75.0); RBC 3.25 Mil/uL (3.80-5.20); RED CELL DISTRIBUTION WIDTH 16.6 % (11.5-14.5); WHITE BLOOD COUNT 17.1 K/uL (4.8-10.8)
[2018-10-28 07:35] LABS: ALB/GLOB RATIO 0.9 (1.0-2.1); ALBUMIN 2.9 g/dL (3.5-5.0); ALT/SGPT 95 U/L (9-52); AST/SGOT 42 U/L (14-36); BLOOD UREA NITROGEN 11 mg/dl (7-17); CALCIUM 8.3 mg/dL (8.4-10.2); GFR NON-AFRICAN AMERICAN > 60; INR 1.5; PROTHROMBIN TIME 16.6 Seconds (9.8-13.1)
[2018-10-28 07:38] LABS: PARTIAL THROMBOPLASTIN TIME 31.2 Seconds (25.6-37.1)
[2018-10-28 08:11] LABS: HEPATITIS B SURFACE AG Negative (NEGATIVE)
[2018-10-28 08:17] LABS: HEPATITIS A IGM NEGATIVE (NEGATIVE); HEPATITIS B CORE AB NEGATIVE (NEGATIVE)
[2018-10-28 08:28] LABS: HEPATITIS C ANTIBODY NEGATIVE (NEGATIVE)
[2018-10-28] MEDS: Prenatal Multivit/Folic Acid/Iron Tab PO SCH (09:05)
--- NOTE | 2018-10-28 12:04 | CP.PCM.PN ---
Subjective - Date & Time of Evaluation Date of Evaluation: 10/28/18 Time of Evaluation: 12:02 - Subjective Subjective: abdominal pain, rlq, glose to the groin, no nausea or vomiting, pain started several weeks prior, states she noticed abdominal distension several weeks ago Objective - Vital Signs/Intake and Output Vital Signs (last 24 hours): Temp Pulse Resp BP Pulse Ox 98.0 F 75 18 100/62 98 10/28/18 09:12 10/28/18 09:12 10/28/18 09:12 10/28/18 09:12 10/28/18 09:12 - Medications Medications: Current Medications Acetaminophen (Tylenol 325mg Tab) 650 mg PO Q6 PRN PRN Reason: Fever >100.4 F Last Admin: 10/28/18 06:08 Dose: 650 mg Ferrous Sulfate (Feosol) 325 mg PO BID [facility] Last Admin: 10/28/18 09:05 Dose: 325 mg Sodium Chloride (Sodium Chloride 0.9%) 1,000 mls @ 100 mls/hr IV .Q10H [facility] Last Admin: 10/28/18 00:10 Dose: 100 mls/hr Piperacillin Sod/Tazobactam (Sod 3.375 gm/ Sodium Chloride) 100 mls @ 100 mls/hr IVPB Q6 [facility]IP; Protocol Last Admin: 10/28/18 05:19 Dose: 100 mls/hr Multivit/Folic Acid/Iron () 1 tab PO DAILY [facility] Last Admin: 10/28/18 09:05 Dose: 1 tab - Labs Labs: 10/28/18 06:35 10/28/18 06:35 PT 16.6 Seconds (9.8-13.1) H 10/28/18 06:35 INR 1.5 10/28/18 06:35 APTT 31.2 Seconds (25.6-37.1) 10/28/18 06:35 - Constitutional Appears: Non-toxic - Eye Exam Eye Exam: EOMI, Normal appearance, Scleral icterus - ENT Exam ENT Exam: Mucous Membranes Moist - Neck Exam Neck Exam: Normal Inspection - Respiratory Exam Respiratory Exam: Clear to Ausculation Bilateral, NORMAL BREATHING PATTERN - Cardiovascular Exam Cardiovascular Exam: REGULAR RHYTHM - GI/Abdominal Exam GI & Abdominal Exam: Soft, Tenderness (non) Additional comments: Pt has a large fibroid uterus, easily palpable, no pain in the RUQ Assessment and Plan - Assessment and Plan (Free Text) Assessment: PT has no evidence of cholecystits, no indications for cholecystectomy, pt may have an ectopic , certainly has a very large fibroid uterus, [employer] should further evaluate this Plan: as above
--- NOTE | 2018-10-28 14:19 | CP.PCM.PN ---
<Erica Santos - Last Filed: 10/28/18 15:17> Subjective - Date & Time of Evaluation Date of Evaluation: 10/28/18 Time of Evaluation: 14:09 - Subjective Subjective: Pt seen and evaluated bedside. No acute events overnight, no new complaints. Continues to complain of LRQ pain and vaginal spotting, denies vomiting, nausea, RUQ pain, fever, chest pain and SOB. Objective - Vital Signs/Intake and Output Vital Signs (last 24 hours): Temp Pulse Resp BP Pulse Ox 98.0 F 75 18 100/62 98 10/28/18 09:12 10/28/18 09:12 10/28/18 09:12 10/28/18 09:12 10/28/18 09:12 - Medications Medications: Current Medications Acetaminophen (Tylenol 325mg Tab) 650 mg PO Q6 PRN PRN Reason: Fever >100.4 F Last Admin: 10/28/18 06:08 Dose: 650 mg Ferrous Sulfate (Feosol) 325 mg PO BID [facility] Last Admin: 10/28/18 09:05 Dose: 325 mg Sodium Chloride (Sodium Chloride 0.9%) 1,000 mls @ 100 mls/hr IV .Q10H [facility] Last Admin: 10/28/18 00:10 Dose: 100 mls/hr Piperacillin Sod/Tazobactam (Sod 3.375 gm/ Sodium Chloride) 100 mls @ 100 mls/hr IVPB Q6 [facility]; Protocol Last Admin: 10/28/18 12:16 Dose: 100 mls/hr Multivit/Folic Acid/Iron () 1 tab PO DAILY [facility] Last Admin: 10/28/18 09:05 Dose: 1 tab - Labs Labs: 10/28/18 06:35 10/28/18 06:35 PT 16.6 Seconds (9.8-13.1) H 10/28/18 06:35 INR 1.5 10/28/18 06:35 APTT 31.2 Seconds (25.6-37.1) 10/28/18 06:35 - Constitutional Appears: Non-toxic, No Acute Distress - GI/Abdominal Exam Additional comments: Pt has a large palpable fibroid uterus (distention R>L), no pain in RUQ - Exam External exam: absent: Ecchymosis Speculum exam: Vaginal Bleeding, Vaginal Discharge Bimanual exam: absent: Cervical Motion Tendernes - Extremities Exam Extremities Exam: absent: Pedal Edema - Psychiatric Exam Psychiatric exam: Normal Affect, Normal Mood - Skin Skin Exam: Dry, Intact, Normal Color, Warm Assessment and Plan - Assessment and Plan (Free Text) Assessment: - Abdominal U/S: Fluid noted inferior to left lobe of the liver and inferior to the gallbladder fossa. Gallbladder mildly distended with upper limit of normal gallbladder wall thickness. Normal CBD caliber. No cholelithiasis appreciated. - Pelvic ultrasound: gross uterine enlargement from enlarged fibroid measuring 15.6cm with uterus measuring 18.9cm. Plan: Cholecystitis - leukocytosis (17 today) and febrile (Tmax of 101.1) - IVF - NS 0.9% @100mL/hr - Zosyn 3.375gm IVP Q6H - Surgery consult (Dr Small): no evidence of cholecystits, no indications for cholecystectomy 1st trimester - LMP: 08/10/18 - Beta HC.79 (admission 53.85) - Pelvic ultrasound: gross uterine enlargement from enlarged fibroid measuring 15.6cm with uterus measuring 18.9cm. - METALLURGICAL TESTER consult appreciated- cannot be confirmed, B-HCG is low, patient will need serial b-HCG to follow up for possible tumor secreting B-hcg vs IUGP - F/u Beta HCG Anemia affecting in 1st trimester - Asymptomatic -Hg/Hct - Ferrous sulfate 325mg po BID DVT prophylaxis - SCD's and early ambulation <Ke Maria D - Last Filed: 10/28/18 15:23> Objective - Vital Signs/Intake and Output Vital Signs (last 24 hours): Temp Pulse Resp BP Pulse Ox 98.0 F 75 18 100/62 98 10/28/18 09:12 10/28/18 09:12 10/28/18 09:12 10/28/18 09:12 10/28/18 09:12 - Medications Medications: Current Medications Acetaminophen (Tylenol 325mg Tab) 650 mg PO Q6 PRN PRN Reason: Fever >100.4 F Last Admin: 10/28/18 06:08 Dose: 650 mg Ferrous Sulfate (Feosol) 325 mg PO BID [facility] Last Admin: 10/28/18 09:05 Dose: 325 mg Sodium Chloride (Sodium Chloride 0.9%) 1,000 mls @ 100 mls/hr IV .Q10H [facility] Last Admin: 10/28/18 00:10 Dose: 100 mls/hr Piperacillin Sod/Tazobactam (Sod 3.375 gm/ Sodium Chloride) 100 mls @ 100 mls/hr IVPB Q6 [facility]; Protocol Last Admin: 10/28/18 12:16 Dose: 100 mls/hr Multivit/Folic Acid/Iron () 1 tab PO DAILY [facility] Last Admin: 10/28/18 09:05 Dose: 1 tab - Labs Labs: 10/28/18 06:35 10/28/18 06:35 PT 16.6 Seconds (9.8-13.1) H 10/28/18 06:35 INR 1.5 10/28/18 06:35 APTT 31.2 Seconds (25.6-37.1) 10/28/18 06:35 Attending/Attestation - Attestation I have personally seen and examined this patient.: Yes I have fully participated in the care of the patient.: Yes I have reviewed all pertinent clinical information, including history, physical exam and plan: Yes Notes (Text): 10/28/18 15:18 Patient seen and examined with resident. Case discussed and agreed with assessment and plan. Serum Hcg dropping. Surgery suggested that [facility] should continue to be involved because patient may have an ectopic , or threatened .
--- NOTE | 2018-10-28 16:10 | CP.PCM.CON ---
<Daphney Monk - Last Filed: 10/28/18 17:38> History of Present Illness - History of Present Illness History of Present Illness: OBGYN consult: Gerald: [id number] Pt is a 32 yo LMP 08/10/18 presented to [facility] 10/27/18 with RLQ pain with vaginal bleeding x1 wk with clots, fever, dysuria, and hematuria. Reports trying to get with partner and had a + UPT at home on 10/26/18. Today pt feels better, RLQ pain is intermittent cramping has improved with meds now 3/10 in severity. Vaginal bleeding continues 1 PPD unchanged for 1 week. Reports fever this AM(100.6 @ 5am), and hematuria. Denies blurry vision, headaches, chest pain, SOB, N/V/D/C, or dysuria. 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 absent: Constipation, Diarrhea, Nausea, Vomiting - Genitourinary Genitourinary: Flank Pain, Hematuria. absent: Dysuria - Reproductive: Female Reproductive:Female: Abnormal Vaginal Bleeding Past Patient History - Past Social History Smoking Status: Never Smoked Alcohol: None Drugs: Denies - PSYCHIATRIC Hx Substance Use: No - SURGICAL HISTORY Hx Surgeries: No - ANESTHESIA Hx Anesthesia: No Meds Allergies/Adverse Reactions: Allergies Allergy/AdvReac Type Severity Reaction Status Date / Time ibuprofen AdvReac PAIN Verified 10/27/18 12:54 - Medications Medications: Current Medications Acetaminophen (Tylenol 325mg Tab) 650 mg PO Q6 PRN PRN Reason: Fever >100.4 F Last Admin: 10/28/18 06:08 Dose: 650 mg Ferrous Sulfate (Feosol) 325 mg PO BID [facility] Last Admin: 10/28/18 09:05 Dose: 325 mg Sodium Chloride (Sodium Chloride 0.9%) 1,000 mls @ 100 mls/hr IV .Q10H [facility] Last Admin: 10/28/18 00:10 Dose: 100 mls/hr Piperacillin Sod/Tazobactam (Sod 3.375 gm/ Sodium Chloride) 100 mls @ 100 mls/hr IVPB Q6 [facility]; Protocol Last Admin: 10/28/18 12:16 Dose: 100 mls/hr Multivit/Folic Acid/Iron () 1 tab PO DAILY [facility] Last Admin: 10/28/18 09:05 Dose: 1 tab Physical Exam - Constitutional Appears: Non-toxic, No Acute Distress - Head Exam Head Exam: ATRAUMATIC, NORMAL INSPECTION, NORMOCEPHALIC - Eye Exam Eye Exam: EOMI - ENT Exam ENT Exam: Mucous Membranes Moist - Respiratory Exam Respiratory Exam: Clear to Auscultation Bilateral. absent: Rales, Rhonchi, Wheezes - Cardiovascular Exam Cardiovascular Exam: RRR, +S1, +S2 - GI/Abdominal Exam GI & Abdominal Exam: Firm (Lower abdomen ), Normal Bowel Sounds, Tenderness (RLQ, to deep palpation). absent: Guarding, Rebound - Back Exam Back exam: CVA tenderness (R). absent: CVA tenderness (L) Results - Vital Signs Recent Vital Signs: Last Vital Signs Temp 99.8 F H 10/28/18 15:28 Pulse 88 10/28/18 15:28 Resp 17 10/28/18 15:28 BP 149/62 10/28/18 15:28 Pulse Ox 98 10/28/18 15:28 - Labs Result Diagrams: 10/28/18 06:35 10/28/18 06:35 Labs: Laboratory Results - last 24 hr 10/27/18 10/27/18 10/27/18 13:07 16:45 18:45 WBC RBC Hgb Hct MCV MCH MCHC RDW Plt Count MPV Neut % (Auto) Lymph % (Auto) Meigs % (Auto) Eos % (Auto) Baso % (Auto) Neut # (Auto) Lymph # (Auto) Meigs # (Auto) Eos # (Auto) Baso # (Auto) PT INR APTT Sodium Potassium Chloride Carbon Dioxide Anion Gap BUN Creatinine Est GFR ( Amer) Est GFR (Non-Af Amer) Random Glucose Calcium Total Bilirubin AST ALT Alkaline Phosphatase Total Protein Albumin Globulin Albumin/Globulin Ratio Lipase 194 Serum HCG, Qual Beta HCG, Quant Urine Opiates Screen Urine Methadone Screen Ur Barbiturates Screen Ur Phencyclidine Scrn Ur Amphetamines Screen U Benzodiazepines Scrn U Oth Cocaine Metabols U Cannabinoids Screen Hepatitis A IgM Ab Negative Hep Bs Antigen Negative Hep B Core IgM Ab Negative Hepatitis C Antibody Negative Blood Type Confirm A POSITIVE 10/27/18 10/27/18 10/28/18 18:52 18:52 06:35 WBC 17.1 H RBC 3.25 L Hgb 8.0 L Hct 24.7 L MCV 76.0 L MCH 24.6 L MCHC 32.4 L RDW 16.6 H Plt Count 619 H MPV 7.7 Neut % (Auto) 86.6 H Lymph % (Auto) 6.7 L Meigs % (Auto) 5.6 Eos % (Auto) 0.7 Baso % (Auto) 0.4 Neut # (Auto) 14.9 H Lymph # (Auto) 1.1 Meigs # (Auto) 1.0 H Eos # (Auto) 0.1 Baso # (Auto) 0.1 PT 16.4 H INR 1.4 APTT 28.2 Sodium Potassium Chloride Carbon Dioxide Anion Gap BUN Creatinine Est GFR ( Amer) Est GFR (Non-Af Amer) Random Glucose Calcium Total Bilirubin AST ALT Alkaline Phosphatase Total Protein Albumin Globulin Albumin/Globulin Ratio Lipase Serum HCG, Qual Beta HCG, Quant Urine Opiates Screen Negative Urine Methadone Screen Negative Ur Barbiturates Screen Negative Ur Phencyclidine Scrn Negative Ur Amphetamines Screen Negative U Benzodiazepines Scrn Negative U Oth Cocaine Metabols Negative U Cannabinoids Screen Negative Hepatitis A IgM Ab Hep Bs Antigen Hep B Core IgM Ab Hepatitis C Antibody Blood Type Confirm 10/28/18 10/28/18 10/28/18 06:35 06:35 08:00 WBC RBC Hgb Hct MCV MCH MCHC RDW Plt Count MPV Neut % (Auto) Lymph % (Auto) Meigs % (Auto) Eos % (Auto) Baso % (Auto) Neut # (Auto) Lymph # (Auto) Meigs # (Auto) Eos # (Auto) Baso # (Auto) PT 16.6 H INR 1.5 APTT 31.2 Sodium 137 Potassium 3.6 Chloride 102 Carbon Dioxide 20 L Anion Gap 19 BUN 11 Creatinine 0.4 L Est GFR ( Amer) > 60 Est GFR (Non-Af Amer) > 60 Random Glucose 90 Calcium 8.3 L Total Bilirubin 1.0 AST 42 H D ALT 95 H D Alkaline Phosphatase 386 H D Total Protein 6.2 L Albumin 2.9 L Globulin 3.3 Albumin/Globulin Ratio 0.9 L Lipase Serum HCG, Qual Positive Beta HCG, Quant Urine Opiates Screen Urine Methadone Screen Ur Barbiturates Screen Ur Phencyclidine Scrn Ur Amphetamines Screen U Benzodiazepines Scrn U Oth Cocaine Metabols U Cannabinoids Screen Hepatitis A IgM Ab Hep Bs Antigen Hep B Core IgM Ab Hepatitis C Antibody Blood Type Confirm 10/28/18 09:00 WBC RBC Hgb Hct MCV MCH MCHC RDW Plt Count MPV Neut % (Auto) Lymph % (Auto) Meigs % (Auto) Eos % (Auto) Baso % (Auto) Neut # (Auto) Lymph # (Auto) Meigs # (Auto) Eos # (Auto) Baso # (Auto) PT INR APTT Sodium Potassium Chloride Carbon Dioxide Anion Gap BUN Creatinine Est GFR ( Amer) Est GFR (Non-Af Amer) Random Glucose Calcium Total Bilirubin AST ALT Alkaline Phosphatase Total Protein Albumin Globulin Albumin/Globulin Ratio Lipase Serum HCG, Qual Beta HCG, Quant 48.79 Urine Opiates Screen Urine Methadone Screen Ur Barbiturates Screen Ur Phencyclidine Scrn Ur Amphetamines Screen U Benzodiazepines Scrn U Oth Cocaine Metabols U Cannabinoids Screen Hepatitis A IgM Ab Hep Bs Antigen Hep B Core IgM Ab Hepatitis C Antibody Blood Type Confirm Assessment & Plan - Assessment and Plan (Free Text) Assessment: Pt is a 32 yo LMP 08/10/18 presented to [facility] 10/27/18 with RLQ pain with vaginal bleeding x1 wk, fever, dysuria, and hematuria. UTI/ Pyleonephritis Febrile, leukocytosis (17.1), CVA tenderness c/w Zosyn Q6h Recommend hemotransfusion due to sickness and Hg 8.0 Type and screen done 10/27/17 Type and crossed transfuse 2 units C/w Ferrous Sulfate BID F/u CBC in AM Elevated B HCG, Vaginal bleeding r/o ectopic likely early failed due to B HCG levels falling B HCG 53.83 (10/27/18), 48.79 (10/28/18) Evaluate abnormal LFT's F/u B HCG levels Q3 days next 10/31/18 Uterine Fibroid Pelvic U/S fibroid 15.6cm non emergent workup needed Pt needs to follow up with CHILD [employer] WORK[employer] outpt Emailed central scheduling to call patient for a follow up appt Case reveiwed and discussed with Dr. Prateek Monk PGY1 - Date & Time Date: 10/28/18 Time: 17:38 <Christopher Chandra - Last Filed: 10/28/18 19:53> Meds - Medications Medications: Current Medications Acetaminophen (Tylenol 325mg Tab) 650 mg PO Q6 PRN PRN Reason: Fever >100.4 F Last Admin: 10/28/18 06:08 Dose: 650 mg Ferrous Sulfate (Feosol) 325 mg PO BID [facility] Last Admin: 10/28/18 17:46 Dose: 325 mg Sodium Chloride (Sodium Chloride 0.9%) 1,000 mls @ 100 mls/hr IV .Q10H [facility] Last Admin: 10/28/18 00:10 Dose: 100 mls/hr Piperacillin Sod/Tazobactam (Sod 3.375 gm/ Sodium Chloride) 100 mls @ 100 mls/hr IVPB Q6 [facility]; Protocol Last Admin: 10/28/18 17:44 Dose: 100 mls/hr Multivit/Folic Acid/Iron () 1 tab PO DAILY [facility] Last Admin: 10/28/18 09:05 Dose: 1 tab Results - Vital Signs Recent Vital Signs: Last Vital Signs Temp 98.7 F 10/28/18 18:15 Pulse 88 10/28/18 15:28 Resp 17 10/28/18 15:28 BP 149/62 10/28/18 15:28 Pulse Ox 98 10/28/18 15:28 - Labs Result Diagrams: 10/28/18 06:35 10/28/18 06:35 Labs: Laboratory Results - last 24 hr 10/27/18 10/27/18 10/28/18 13:07 18:45 06:35 WBC 17.1 H RBC 3.25 L Hgb 8.0 L Hct 24.7 L MCV 76.0 L MCH 24.6 L MCHC 32.4 L RDW 16.6 H Plt Count 619 H MPV 7.7 Neut % (Auto) 86.6 H Lymph % (Auto) 6.7 L Meigs % (Auto) 5.6 Eos % (Auto) 0.7 Baso % (Auto) 0.4 Neut # (Auto) 14.9 H Lymph # (Auto) 1.1 Meigs # (Auto) 1.0 H Eos # (Auto) 0.1 Baso # (Auto) 0.1 PT INR APTT Sodium Potassium Chloride Carbon Dioxide Anion Gap BUN Creatinine Est GFR ( Amer) Est GFR (Non-Af Amer) Random Glucose Calcium Total Bilirubin AST ALT Alkaline Phosphatase Total Protein Albumin Globulin Albumin/Globulin Ratio Serum HCG, Qual Beta HCG, Quant Hepatitis A IgM Ab Negative Hep Bs Antigen Negative Hep B Core IgM Ab Negative Hepatitis C Antibody Negative Blood Type Blood Type Confirm A POSITIVE Antibody Screen Crossmatch BBK History Checked 10/28/18 10/28/18 10/28/18 06:35 06:35 08:00 WBC RBC Hgb Hct MCV MCH MCHC RDW Plt Count MPV Neut % (Auto) Lymph % (Auto) Meigs % (Auto) Eos % (Auto) Baso % (Auto) Neut # (Auto) Lymph # (Auto) Meigs # (Auto) Eos # (Auto) Baso # (Auto) PT 16.6 H INR 1.5 APTT 31.2 Sodium 137 Potassium 3.6 Chloride 102 Carbon Dioxide 20 L Anion Gap 19 BUN 11 Creatinine 0.4 L Est GFR ( Amer) > 60 Est GFR (Non-Af Amer) > 60 Random Glucose 90 Calcium 8.3 L Total Bilirubin 1.0 AST 42 H D ALT 95 H D Alkaline Phosphatase 386 H D Total Protein 6.2 L Albumin 2.9 L Globulin 3.3 Albumin/Globulin Ratio 0.9 L Serum HCG, Qual Positive Beta HCG, Quant Hepatitis A IgM Ab Hep Bs Antigen Hep B Core IgM Ab Hepatitis C Antibody Blood Type Blood Type Confirm Antibody Screen Crossmatch BBK History Checked 10/28/18 10/28/18 09:00 17:50 WBC RBC Hgb Hct MCV MCH MCHC RDW Plt Count MPV Neut % (Auto) Lymph % (Auto) Meigs % (Auto) Eos % (Auto) Baso % (Auto) Neut # (Auto) Lymph # (Auto) Meigs # (Auto) Eos # (Auto) Baso # (Auto) PT INR APTT Sodium Potassium Chloride Carbon Dioxide Anion Gap BUN Creatinine Est GFR ( Amer) Est GFR (Non-Af Amer) Random Glucose Calcium Total Bilirubin AST ALT Alkaline Phosphatase Total Protein Albumin Globulin Albumin/Globulin Ratio Serum HCG, Qual Beta HCG, Quant 48.79 Hepatitis A IgM Ab Hep Bs Antigen Hep B Core IgM Ab Hepatitis C Antibody Blood Type A POSITIVE Blood Type Confirm Antibody Screen Negative Crossmatch See Detail BBK History Checked Patient has bt Attending/Attestation - Attestation I have personally seen and examined this patient.: No I have fully participated in the care of the patient.: Yes I have reviewed all pertinent clinical information: Yes
--- NOTE | 2018-10-28 19:14 | US ---
Date of service: 10/28/2018 HISTORY: IUP confirmation COMPARISON: None available. TECHNIQUE: Transabdominal and transvaginal pelvic ultrasound was performed with longitudinal and transverse images submitted for interpretation. FINDINGS: UTERUS: Measures 19.0 x 15.0 x 13.0 cm. Uterus is grossly enlarged by what appears to be a large mass in the central uterus within the peripheral myometrium appreciated. This suggestive of a large fibroid measuring at least 15.6 cm greatest dimension once again in the interval. There now clinical indication suggestive of with prior indication submitted only admitting pelvic pain. Therefore, differential diagnosis would represent potential gestational trophoblastic disease as no IUP is appreciable at this time. A small lower uterine segment posterior fibroid is identified measuring 2.3 x 2.2 x 1.9 cm toward the left. ENDOMETRIUM: The endometrium is not recognizable. CERVIX: No definitive cervical abnormality identified. RIGHT OVARY: Measures 3.4 x 3.0 x 2.3 cm. No solid mass. Normal flow. Nonspecific trace fluid right adnexa compartment. LEFT OVARY: Measures 2.5 x 2.5 x 2.1 cm. No solid mass. Normal flow. FREE FLUID: As above. OTHER FINDINGS: None. IMPRESSION: No defined IUP appreciable. A large mass seen in the central uterus dominating the uterus which is enlarged to 19.0 cm and may reflect a large fibroid either extrinsic or internal relative to the endometrial cavity. Given clinical history of , gestational trophoblastic disease should be considered as well. Further clinical correlation is advised. No obvious ectopic gestation although this is included as a potential nonvisualized finding. Further clinical correlation is advised including serial beta HCG analysis and one-week follow-up pelvic ultrasonography as clinically warranted.
[2018-10-29] MEDS: Piperacillin/Tazobact 3.375 GM in Sodium Chloride 0.9% 100 ML IVPB SCH ×2 (00:30→06:57)
--- NOTE | 2018-10-29 00:34 | CON ---
DATE: 10/27/2018 REFERRING PHYSICIAN: Ke Maria MD REASON FOR CONSULTATION: Elevated LFTs and abdominal pain. HISTORY OF PRESENT ILLNESS: This is a very pleasant 32-year-old female, essentially brought it for right upper and lower quadrant pain. Currently having with fibroid uterus and also vaginal spotting. Pain she reports is mostly in the right upper and right lower quadrants. No fever, chills, nausea or vomiting. Some discomfort. Otherwise no apparent distress. PAST MEDICAL HISTORY: As above. SURGICAL HISTORY: As above. MEDICATIONS: Have been reviewed. REVIEW OF SYSTEMS: All other systems have been reviewed and negative apart from the HPI. PHYSICAL EXAMINATION: VITAL SIGNS: Here in the hospital are grossly unremarkable. GENERAL: This is a pleasant middle-aged female, lying in bed comfortably, in no apparent distress. HEENT: Head: Normocephalic and atraumatic. Eyes: Pupils are equally reactive to light bilaterally. No conjunctival pallor or icterus. NECK: Supple. Normal range of motion. No lymphadenopathy appreciated. LUNGS: Coarse breath sounds bilaterally. HEART: S1 and S2. Regular rate and rhythm. No murmurs appreciated. ABDOMEN: Soft, distended, gravid, There is double uterus. Some discomfort in the right upper and lower quadrants. No rebound. No guarding. RECTAL: Deferred. EXTREMITIES: Pulses present bilaterally. SKIN: Warm, dry and intact. NEUROLOGIC: A and O x3. LABORATORY DATA: Labs and radiology have been reviewed. WBC is 18.9, hemoglobin 9.1 and stable, hematocrit 28.6, platelet count is 668. INR 1.4. AST and ALT are 59 and 142, alk phos is 488. Ultrasound shows some trace fluid in the liver and the fossa, gallbladder wall distended, normal CBD caliber. ASSESSMENT AND PLAN: This is a 32-year-old female who is at first trimester with elevated liver function tests. Surgical consult appreciated. Elevation of liver function tests are not enough to suggest any significant concern like . This is unlikely cholecystitis. We will defer to my surgical colleagues for more on that from gastrointestinal standpoint, I will recommend gynecological evaluation. We will check hepatitis A, B and C panel. Repeat laboratories in the morning. Thank you for the consult. Buddy Tarango MD/ PhD cc: Ke Maria MD
[2018-10-29 06:43] LABS: ALB/GLOB RATIO 0.9 (1.0-2.1); ALBUMIN 2.8 g/dL (3.5-5.0); ALT/SGPT 78 U/L (9-52); AST/SGOT 25 U/L (14-36); BLOOD UREA NITROGEN 7 mg/dl (7-17); CALCIUM 8.5 mg/dL (8.4-10.2); GFR NON-AFRICAN AMERICAN > 60
[2018-10-29] MEDS: Sodium Chloride 0.9% 1,000 ML IV SCH (06:58)
[2018-10-29 08:12] VITALS: BP 100/66; PULSE 81; RESP 19; TEMP 98.1; O2SAT 99
--- NOTE | 2018-10-29 10:26 | CP.PCM.DIS ---
<Erica Santos - Last Filed: 10/29/18 14:17> Provider - Provider Date of Admission: 10/27/18 19:54 Attending physician: Ke Maria MD Consults: 10/27/18 18:38 Gastroenterology Consult Stat Comment: Consulting Provider: Buddy Tarango Consulting Physician: Buddy Tarango Reason for Consult: ELEVATED LFT'S Surgical [General Surgery Consult] Stat Comment: Consulting Provider: Luis Fernando Small Consulting Physician: Luis Fernando Small Reason for Consult: GALLBLADDER THICKENING 10/27/18 18:43 Gynocology [SENSITIZER Consult] Stat Comment: Consulting Provider: Christopher Chandra Consulting Physician: Christopher Chandra Reason for Consult: VAGINAL BLEEDING/ UTERINE FIBROID Time Spent in preparation of Discharge (in minutes): 20 Diagnosis - Discharge Diagnosis (1) Miscarriage Status: Acute (2) Abdominal pain Status: Acute Hospital Course - Lab Results Lab Results: Micro Results 10/27/18 13:35 Urine,Clean Catch Urine Culture - Final No Growth (<1,000 CFU/ML) 10/27/18 15:00 Blood-Venous Blood Culture - Preliminary NO GROWTH AFTER 24 HOURS Most Recent Lab Values WBC 17.1 K/uL (4.8-10.8) H 10/28/18 06:35 RBC 3.25 Mil/uL (3.80-5.20) L 10/28/18 06:35 Hgb 8.0 g/dL (12.0-16.0) L 10/28/18 06:35 Hct 24.7 % (34.0-47.0) L 10/28/18 06:35 MCV 76.0 fl (81.0-99.0) L 10/28/18 06:35 MCH 24.6 pg (27.0-31.0) L 10/28/18 06:35 MCHC 32.4 g/dL (33.0-37.0) L 10/28/18 06:35 RDW 16.6 % (11.5-14.5) H 10/28/18 06:35 Plt Count 619 K/uL (130-400) H 10/28/18 06:35 MPV 7.7 fl (7.2-11.7) 10/28/18 06:35 Neut % (Auto) 86.6 % (50.0-75.0) H 10/28/18 06:35 Lymph % (Auto) 6.7 % (20.0-40.0) L 10/28/18 06:35 Boyle % (Auto) 5.6 % (0.0-10.0) 10/28/18 06:35 Eos % (Auto) 0.7 % (0.0-4.0) 10/28/18 06:35 Baso % (Auto) 0.4 % (0.0-2.0) 10/28/18 06:35 Neut # (Auto) 14.9 K/uL (1.8-7.0) H 10/28/18 06:35 Lymph # (Auto) 1.1 K/uL (1.0-4.3) 10/28/18 06:35 Boyle # (Auto) 1.0 K/uL (0.0-0.8) H 10/28/18 06:35 Eos # (Auto) 0.1 K/uL (0.0-0.7) 10/28/18 06:35 Baso # (Auto) 0.1 K/uL (0.0-0.2) 10/28/18 06:35 Neutrophils % (Manual) 85 % (42-75) H 10/27/18 13:35 Lymphocytes % (Manual) 9 % (20-50) L 10/27/18 13:35 Monocytes % (Manual) 4 % (0-10) 10/27/18 13:35 Myelocytes % 1 % (0-0) H 10/27/18 13:35 Blast Cells % 1 % (0-0) H 10/27/18 13:35 Platelet Estimate Increased (NORMAL) H 10/27/18 13:35 Anisocytosis (manual) Slight 10/27/18 13:35 Microcytosis (manual) Slight 10/27/18 13:35 Ovalocytes Slight 10/27/18 13:35 PT 16.6 Seconds (9.8-13.1) H 10/28/18 06:35 INR 1.5 10/28/18 06:35 APTT 31.2 Seconds (25.6-37.1) 10/28/18 06:35 pO2 65 mm/Hg (30-55) H 10/27/18 15:44 ABG Carboxyhemoglobin 2.2 % (0.5-1.5) H 10/27/18 15:11 POC ABG HHb (Measured) 24.0 % (0.0-5.0) H 10/27/18 15:11 ABG Methemoglobin 3.0 % (0.0-3.0) 10/27/18 15:11 VBG pH 7.49 (7.32-7.43) H 10/27/18 15:44 VBG pCO2 33 mmHg (40-60) L 10/27/18 15:44 VBG HCO3 26.6 mmol/L 10/27/18 15:44 VBG Total CO2 26.1 mmol/L (22-28) 10/27/18 15:44 VBG O2 Sat (Calc) 97.7 % (40-65) H 10/27/18 15:44 VBG Base Excess 2.2 mmol/L (0.0-2.0) H 10/27/18 15:44 VBG Hgb O2 Saturation 70.8 % (95.0-98.0) L 10/27/18 15:11 VBG Potassium 4.0 mmol/L (3.6-5.2) 10/27/18 15:44 Hemoglobin 13.3 g/dL (11.7-17.4) 10/27/18 15:11 Sodium 133.0 mmol/L (132-148) 10/27/18 15:44 Chloride 103.0 mmol/L (98-107) 10/27/18 15:44 Glucose 99 mg/dL (65-105) 10/27/18 15:44 Lactate 0.9 mmol/L (0.7-2.1) 10/27/18 15:44 FiO2 21.0 % 10/27/18 15:44 Sodium 136 mmol/l (132-148) 10/29/18 06:00 Potassium 3.5 MMOL/L (3.6-5.0) L 10/29/18 06:00 Chloride 103 mmol/L (98-107) 10/29/18 06:00 Carbon Dioxide 25 mmol/L (22-30) 10/29/18 06:00 Anion Gap 12 (10-20) 10/29/18 06:00 BUN 7 mg/dl (7-17) 10/29/18 06:00 Creatinine 0.4 mg/dl (0.7-1.2) L 10/29/18 06:00 Est GFR ( Amer) > 60 10/29/18 06:00 Est GFR (Non-Af Amer) > 60 10/29/18 06:00 Random Glucose 122 mg/dL (65-105) H 10/29/18 06:00 Calcium 8.5 mg/dL (8.4-10.2) 10/29/18 06:00 Total Bilirubin 1.3 mg/dl (0.2-1.3) 10/29/18 06:00 AST 25 U/L (14-36) 10/29/18 06:00 ALT 78 U/L (9-52) H 10/29/18 06:00 Alkaline Phosphatase 344 U/L (38-126) H 10/29/18 06:00 Total Protein 6.1 G/DL (6.3-8.2) L 10/29/18 06:00 Albumin 2.8 g/dL (3.5-5.0) L 10/29/18 06:00 Globulin 3.3 gm/dL (2.2-3.9) 10/29/18 06:00 Albumin/Globulin Ratio 0.9 (1.0-2.1) L 10/29/18 06:00 Lipase 194 U/L (23-300) 10/27/18 16:45 Serum HCG, Qual Positive (NEGATIVE) 10/28/18 08:00 Beta HCG, Quant 41.34 mIU/mL 10/29/18 06:00 Venous Blood Potassium 4.0 mmol/L (3.6-5.2) 10/27/18 15:44 Urine Color Debbie (YELLOW) 10/27/18 13:35 Urine Clarity Cloudy (Clear) 10/27/18 13:35 Urine pH 6.0 (5.0-8.0) 10/27/18 13:35 Ur Specific [place] 1.017 (1.003-1.030) 10/27/18 13:35 Urine Protein 100 mg/dL (NEGATIVE) 10/27/18 13:35 Urine Glucose (UA) Neg mg/dL (NEGATIVE) 10/27/18 13:35 Urine Ketones 20 mg/dL (NEGATIVE) 10/27/18 13:35 Urine Blood Large (NEGATIVE) 10/27/18 13:35 Urine Nitrate Negative (NEGATIVE) 10/27/18 13:35 Urine Bilirubin Negative (NEGATIVE) 10/27/18 13:35 Urine Urobilinogen 4.0 mg/dL (0.2-1.0) H 10/27/18 13:35 Ur Leukocyte Esterase Mod [place]/uL (Negative) 10/27/18 13:35 Urine RBC (Auto) 87 /hpf (0-3) H 10/27/18 13:35 Urine Microscopic WBC 176 /hpf (0-5) H 10/27/18 13:35 Ur Squamous Epith Cells 2 /hpf (0-5) 10/27/18 13:35 Amorphous Sediment Rare /ul (<OCC) H 10/27/18 13:35 Urine Bacteria Few (<OCC) H 10/27/18 13:35 Urine Opiates Screen Negative (NEGATIVE) 10/27/18 18:52 Urine Methadone Screen Negative (NEGATIVE) 10/27/18 18:52 Ur Barbiturates Screen Negative (NEGATIVE) 10/27/18 18:52 Ur Phencyclidine Scrn Negative (NEGATIVE) 10/27/18 18:52 Ur Amphetamines Screen Negative (NEGATIVE) 10/27/18 18:52 U Benzodiazepines Scrn Negative (NEGATIVE) 10/27/18 18:52 U Oth Cocaine Metabols Negative (NEGATIVE) 10/27/18 18:52 U Cannabinoids Screen Negative (NEGATIVE) 10/27/18 18:52 Hepatitis A IgM Ab Negative (NEGATIVE) 10/27/18 18:45 Hep Bs Antigen Negative (NEGATIVE) 10/27/18 18:45 Hep B Core IgM Ab Negative (NEGATIVE) 10/27/18 18:45 Hepatitis C Antibody Negative (NEGATIVE) 10/27/18 18:45 Blood Type A POSITIVE 10/28/18 17:50 Blood Type Confirm A POSITIVE 10/27/18 13:07 Antibody Screen Negative 10/28/18 17:50 Crossmatch See Detail 10/28/18 17:50 BBK History Checked Patient has bt 10/28/18 17:50 - Hospital Course Hospital Course: 32 yo female with no PMH presented to the ER due to LRQ abdominal pain admitted for cholecystitis - cholecystitis ruled out. Surgery consult (Dr Small): no evidence of cholecystits, no indications for cholecystectomy; [facility] should evaluate case. LMP: 08/10/18, beta HC.79 (admission 53.85) - transvaginal ultrasound indicated no IUP. Pelvic ultrasound: gross uterine enlargement from enlarged fibroid measuring 15.6cm with uterus measuring 18.9cm. Treated with Zosyn, discharged on cipro for uncomplicated cystitis. Pt needs to followup with [facility] for GC/CL result, serial bHCG and repeat pelvic ultrasound (fibroid). Jermaine Joiner made aware for pt appointment. - Discharge Exam - Head Exam Head Exam: ATRAUMATIC, NORMAL INSPECTION, NORMOCEPHALIC - Respiratory Exam Respiratory Exam: NORMAL BREATHING PATTERN - Cardiovascular Exam Cardiovascular Exam: REGULAR RHYTHM - Exam Speculum exam: Vaginal Bleeding - Extremities Exam Extremities exam: normal capillary refill - Back Exam Back exam: absent: CVA tenderness (L), CVA tenderness (R) - Neurological Exam Neurological exam: Alert, Normal Gait, Oriented x3 - Psychiatric Exam Psychiatric exam: Normal Affect, Normal Mood - Skin Skin Exam: Dry, Intact Discharge Plan - Discharge Medications Prescriptions: Ciprofloxacin HCl [Cipro] 250 mg PO BID #10 tablet Ferrous Sulfate [Feosol] 325 mg PO BID #60 tab - Follow Up Plan Condition: STABLE Disposition: HOME/ ROUTINE Instructions: Anemia Caused by Low Iron, Adult (DC), Cholecystitis (DC), Urinary Tract Infection in Women (DC) Additional Instructions: hacer halle con kurtz primario dentro de 1 semana - Jermaine Joiner will contact. Referrals: Luis Fernando Small MD [Staff Provider] - Buddy Tarango MD, PhD [Staff Provider] - [facility] [place] [Provider Group] <Ke Maria - Last Filed: 10/29/18 16:23> Provider - Provider Date of Admission: 10/27/18 19:54 Attending physician: Ke Maria MD Consults: 10/27/18 18:38 Gastroenterology Consult Stat Comment: Consulting Provider: Buddy Tarango Consulting Physician: Buddy Tarango Reason for Consult: ELEVATED LFT'S Surgical [General Surgery Consult] Stat Comment: Consulting Provider: Luis Fernando Small Consulting Physician: Luis Fernando Small Reason for Consult: GALLBLADDER THICKENING 10/27/18 18:43 Gynocology [SENSITIZER Consult] Stat Comment: Consulting Provider: Christohper Chandra Consulting Physician: Christopher Chandra Reason for Consult: VAGINAL BLEEDING/ UTERINE FIBROID Hospital Course - Lab Results Lab Results: Micro Results 10/27/18 15:00 Blood-Venous Blood Culture - Preliminary NO GROWTH AFTER 48 HOURS 10/27/18 13:35 Urine,Clean Catch Urine Culture - Final No Growth (<1,000 CFU/ML) Most Recent Lab Values WBC 16.2 K/uL (4.8-10.8) H 10/29/18 10:15 RBC 4.31 Mil/uL (3.80-5.20) 10/29/18 10:15 Hgb 10.9 g/dL (12.0-16.0) L D 10/29/18 10:15 Hct 34.3 % (34.0-47.0) 10/29/18 10:15 MCV 79.6 fl (81.0-99.0) L D 10/29/18 10:15 MCH 25.4 pg (27.0-31.0) L 10/29/18 10:15 MCHC 31.9 g/dL (33.0-37.0) L 10/29/18 10:15 RDW 18.1 % (11.5-14.5) H 10/29/18 10:15 Plt Count 654 K/uL (130-400) H 10/29/18 10:15 MPV 7.5 fl (7.2-11.7) 10/29/18 10:15 Neut % (Auto) 86.6 % (50.0-75.0) H 10/29/18 10:15 Lymph % (Auto) 6.6 % (20.0-40.0) L 10/29/18 10:15 Boyle % (Auto) 4.2 % (0.0-10.0) 10/29/18 10:15 Eos % (Auto) 1.6 % (0.0-4.0) 10/29/18 10:15 Baso % (Auto) 1.0 % (0.0-2.0) 10/29/18 10:15 Neut # (Auto) 14.0 K/uL (1.8-7.0) H 10/29/18 10:15 Lymph # (Auto) 1.1 K/uL (1.0-4.3) 10/29/18 10:15 Boyle # (Auto) 0.7 K/uL (0.0-0.8) 10/29/18 10:15 Eos # (Auto) 0.3 K/uL (0.0-0.7) 10/29/18 10:15 Baso # (Auto) 0.2 K/uL (0.0-0.2) 10/29/18 10:15 Neutrophils % (Manual) 85 % (42-75) H 10/27/18 13:35 Lymphocytes % (Manual) 9 % (20-50) L 10/27/18 13:35 Monocytes % (Manual) 4 % (0-10) 10/27/18 13:35 Myelocytes % 1 % (0-0) H 10/27/18 13:35 Blast Cells % 1 % (0-0) H 10/27/18 13:35 Platelet Estimate Increased (NORMAL) H 10/27/18 13:35 Anisocytosis (manual) Slight 10/27/18 13:35 Microcytosis (manual) Slight 10/27/18 13:35 Ovalocytes Slight 10/27/18 13:35 PT 16.6 Seconds (9.8-13.1) H 10/28/18 06:35 INR 1.5 10/28/18 06:35 APTT 31.2 Seconds (25.6-37.1) 10/28/18 06:35 pO2 65 mm/Hg (30-55) H 10/27/18 15:44 ABG Carboxyhemoglobin 2.2 % (0.5-1.5) H 10/27/18 15:11 POC ABG HHb (Measured) 24.0 % (0.0-5.0) H 10/27/18 15:11 ABG Methemoglobin 3.0 % (0.0-3.0) 10/27/18 15:11 VBG pH 7.49 (7.32-7.43) H 10/27/18 15:44 VBG pCO2 33 mmHg (40-60) L 10/27/18 15:44 VBG HCO3 26.6 mmol/L 10/27/18 15:44 VBG Total CO2 26.1 mmol/L (22-28) 10/27/18 15:44 VBG O2 Sat (Calc) 97.7 % (40-65) H 10/27/18 15:44 VBG Base Excess 2.2 mmol/L (0.0-2.0) H 10/27/18 15:44 VBG Hgb O2 Saturation 70.8 % (95.0-98.0) L 10/27/18 15:11 VBG Potassium 4.0 mmol/L (3.6-5.2) 10/27/18 15:44 Hemoglobin 13.3 g/dL (11.7-17.4) 10/27/18 15:11 Sodium 133.0 mmol/L (132-148) 10/27/18 15:44 Chloride 103.0 mmol/L (98-107) 10/27/18 15:44 Glucose 99 mg/dL (65-105) 10/27/18 15:44 Lactate 0.9 mmol/L (0.7-2.1) 10/27/18 15:44 FiO2 21.0 % 10/27/18 15:44 Sodium 136 mmol/l (132-148) 10/29/18 06:00 Potassium 3.5 MMOL/L (3.6-5.0) L 10/29/18 06:00 Chloride 103 mmol/L (98-107) 10/29/18 06:00 Carbon Dioxide 25 mmol/L (22-30) 10/29/18 06:00 Anion Gap 12 (10-20) 10/29/18 06:00 BUN 7 mg/dl (7-17) 10/29/18 06:00 Creatinine 0.4 mg/dl (0.7-1.2) L 10/29/18 06:00 Est GFR ( Amer) > 60 10/29/18 06:00 Est GFR (Non-Af Amer) > 60 10/29/18 06:00 Random Glucose 122 mg/dL (65-105) H 10/29/18 06:00 Calcium 8.5 mg/dL (8.4-10.2) 10/29/18 06:00 Total Bilirubin 1.3 mg/dl (0.2-1.3) 10/29/18 06:00 AST 25 U/L (14-36) 10/29/18 06:00 ALT 78 U/L (9-52) H 10/29/18 06:00 Alkaline Phosphatase 344 U/L (38-126) H 10/29/18 06:00 Total Protein 6.1 G/DL (6.3-8.2) L 10/29/18 06:00 Albumin 2.8 g/dL (3.5-5.0) L 10/29/18 06:00 Globulin 3.3 gm/dL (2.2-3.9) 10/29/18 06:00 Albumin/Globulin Ratio 0.9 (1.0-2.1) L 10/29/18 06:00 Lipase 194 U/L (23-300) 10/27/18 16:45 Serum HCG, Qual Positive (NEGATIVE) 10/28/18 08:00 Beta HCG, Quant 41.34 mIU/mL 10/29/18 06:00 Venous Blood Potassium 4.0 mmol/L (3.6-5.2) 10/27/18 15:44 Urine Color Debbie (YELLOW) 10/27/18 13:35 Urine Clarity Cloudy (Clear) 10/27/18 13:35 Urine pH 6.0 (5.0-8.0) 10/27/18 13:35 Ur Specific [place] 1.017 (1.003-1.030) 10/27/18 13:35 Urine Protein 100 mg/dL (NEGATIVE) 10/27/18 13:35 Urine Glucose (UA) Neg mg/dL (NEGATIVE) 10/27/18 13:35 Urine Ketones 20 mg/dL (NEGATIVE) 10/27/18 13:35 Urine Blood Large (NEGATIVE) 10/27/18 13:35 Urine Nitrate Negative (NEGATIVE) 10/27/18 13:35 Urine Bilirubin Negative (NEGATIVE) 10/27/18 13:35 Urine Urobilinogen 4.0 mg/dL (0.2-1.0) H 10/27/18 13:35 Ur Leukocyte Esterase Mod [place]/uL (Negative) 10/27/18 13:35 Urine RBC (Auto) 87 /hpf (0-3) H 10/27/18 13:35 Urine Microscopic WBC 176 /hpf (0-5) H 10/27/18 13:35 Ur Squamous Epith Cells 2 /hpf (0-5) 10/27/18 13:35 Amorphous Sediment Rare /ul (<OCC) H 10/27/18 13:35 Urine Bacteria Few (<OCC) H 10/27/18 13:35 Urine Opiates Screen Negative (NEGATIVE) 10/27/18 18:52 Urine Methadone Screen Negative (NEGATIVE) 10/27/18 18:52 Ur Barbiturates Screen Negative (NEGATIVE) 10/27/18 18:52 Ur Phencyclidine Scrn Negative (NEGATIVE) 10/27/18 18:52 Ur Amphetamines Screen Negative (NEGATIVE) 10/27/18 18:52 U Benzodiazepines Scrn Negative (NEGATIVE) 10/27/18 18:52 U Oth Cocaine Metabols Negative (NEGATIVE) 10/27/18 18:52 U Cannabinoids Screen Negative (NEGATIVE) 10/27/18 18:52 Hepatitis A IgM Ab Negative (NEGATIVE) 10/27/18 18:45 Hep Bs Antigen Negative (NEGATIVE) 10/27/18 18:45 Hep B Core IgM Ab Negative (NEGATIVE) 10/27/18 18:45 Hepatitis C Antibody Negative (NEGATIVE) 10/27/18 18:45 Blood Type A POSITIVE 10/28/18 17:50 Blood Type Confirm A POSITIVE 10/27/18 13:07 Antibody Screen Negative 10/28/18 17:50 Crossmatch See Detail 10/28/18 17:50 BBK History Checked Patient has bt 10/28/18 17:50 Attending/Attestation - Attestation I have personally seen and examined this patient.: Yes I have fully participated in the care of the patient.: Yes I have reviewed all pertinent clinical information, including history, physical exam and plan: Yes Notes (Text): 10/29/18 16:20 Patient seen and examined with resident. Case discussed and agreed with assessment. Patient discharged in stable condition. She would need follow up in Gyne clinic and to have repeat pelvic sonogram and serum HCG in a week.
[2018-10-29 10:28] LABS: BASO # 0.2 K/uL (0.0-0.2); EOS # 0.3 K/uL (0.0-0.7); EOS % 1.6 % (0.0-4.0); LYMPH # 1.1 K/uL (1.0-4.3); LYMPH % 6.6 % (20.0-40.0); MEAN CELL VOLUME 79.6 fl (81.0-99.0); MEAN CORPUSCULAR HEMOGLOBIN 25.4 pg (27.0-31.0); MEAN CORPUSCULAR HGB CONC 31.9 g/dL (33.0-37.0); MEAN PLATELET VOLUME 7.5 fl (7.2-11.7); MONO # 0.7 K/uL (0.0-0.8); MONO % 4.2 % (0.0-10.0); NEUT % 86.6 % (50.0-75.0); RBC 4.31 Mil/uL (3.80-5.20); RED CELL DISTRIBUTION WIDTH 18.1 % (11.5-14.5); WHITE BLOOD COUNT 16.2 K/uL (4.8-10.8)
[2018-10-29 11:36] LABS: HEMOGLOBIN 10.9 g/dL (12.0-16.0)
[2018-10-29] MEDS: Prenatal Multivit/Folic Acid/Iron Tab PO SCH (12:14)
== END 2018-10-29 14:54 | disposition home or self-care (01) | DRG 564 ==
LOC: H.ER 12:16 → H.ERHOLD 19:54 → H.MEDSURG1 10-29 07:48
DX: O03.88 Urinary tract infection following complete or unspecified spontaneous abortion (principal); R94.5 Abnormal results of liver function studies; Z88.6 Allergy status to analgesic agent